=== PATIENT | male | born 1930 | race Caucasian/White ===

== ENCOUNTER → 2016-11-28 | Outpatient (CLI) | payer OTHER, MEDICARE ==
[2016-11-28 09:48] LABS: BLOOD UREA NITROGEN 44 mg/dL (7-22); BUN/CREATININE RATIO 16.29 (6-20); CALCIUM 9.2 mg/dL (8.7-10.7); SERUM ALBUMIN 4.2 g/dL (3.5-4.8)
== END ==
LOC: LAB 08:50
PROVIDERS: ATTEND Internal Medicine
DX: N18.4 Chronic kidney disease, stage 4 (severe) (principal)
CPT/HCPCS: 36415; 80053

== ENCOUNTER → 2016-12-27 | Outpatient (CLI) | payer OTHER, MEDICARE ==
[2016-12-27 11:09] LABS: BLOOD UREA NITROGEN 43 mg/dL (7-22); BUN/CREATININE RATIO 14.33 (6-20); CALCIUM 8.7 mg/dL (8.7-10.7); SERUM ALBUMIN 3.8 g/dL (3.5-4.8)
== END ==
LOC: LAB 10:40
PROVIDERS: ATTEND Internal Medicine
DX: N18.4 Chronic kidney disease, stage 4 (severe) (principal); J44.9 Chronic obstructive pulmonary disease, unspecified; I50.42 Chronic combined systolic (congestive) and diastolic (congestive) heart failure
CPT/HCPCS: 36415; 80053; 99214; G0463

== ENCOUNTER → 2017-01-24 | Outpatient (CLI) | payer OTHER, MEDICARE ==
[2017-01-24 21:47] LABS: BLOOD UREA NITROGEN 35 mg/dL (7-22); CALCIUM 8.3 mg/dL (8.7-10.7)
[2017-01-24 21:48] LABS: SERUM ALBUMIN 3.6 g/dL (3.5-4.8)
== END ==
LOC: LAB 10:34
PROVIDERS: ATTEND Internal Medicine
DX: N18.4 Chronic kidney disease, stage 4 (severe) (principal); I50.42 Chronic combined systolic (congestive) and diastolic (congestive) heart failure
CPT/HCPCS: 36415; 80053; 83880

== ENCOUNTER 2017-02-26 00:13 | Inpatient (IN) | payer OTHER, MEDICARE ==
[2017-02-26] MEDS ORDERED: Sodium Chloride 0.9% 1,000 ML PRIMARY IV ONE (00:49)
[2017-02-26] MEDS ORDERED: NORMAL SALINE 10 ML SYRINGE FLUSH IVP PRN ×3 (00:49→04:29)
[2017-02-26] MEDS ORDERED: IPRATROPIUM/ALBUTEROL SULFATE 3 ML NEB NEB ONE (00:54)
--- NOTE | 2017-02-26 01:03 | EKG ---
[address] [place] [id number] Measurements Intervals [place] Rate: 77 P: 39 CT: 226 QRS: -81 QRSD: 123 T: 111 QT: 411 QTc: 443 Interpretive Statements SINUS RHYTHM WITH FIRST DEGREE AV BLOCK WITH OCCASIONAL SUPRAVENTRICULAR PREMATURE COMPLEXES LEFT ANTERIOR FASCICULAR BLOCK MODERATE T-WAVE ABNORMALITY, CONSIDER ANTEROLATERAL ISCHEMIA MARKED 60 CYCLE INTERFERENCE Compared to ECG 03/04/2015 10:26:25 Left anterior fascicular block now present Sinus bradycardia no longer present T-wave abnormality still present Possible ischemia still present Electronically Signed On 02-26-17 17:50:51 MDT by Mike Wiggins [id number]
[2017-02-26 01:09] LABS: BASOPHILS # (AUTO) 0.06 10*3/UL; BASOPHILS % (AUTO) 0.5 % (0-1); EOSINOPHILS # (AUTO) 0.02 10*3/UL; EOSINOPHILS % (AUTO) 0.2 % (0-8); HEMATOCRIT 50.9 % (42.0-52.0); HEMOGLOBIN 16.8 g/dL (14.0-18.0); LYMPHOCYTES # (AUTO) 1.28 10*3/uL; MEAN CORPUSCULAR VOLUME 84.7 FL (80-90); MEAN PLATELET VOLUME 11.2 FL (7.4-12.2); MONOCYTES # (AUTO) 1.05 10*3/UL (0.3-0.8); MONOCYTES % (AUTO) 9.5 % (5-15); NEUTROPHILS # (AUTO) 8.67 10*3/UL; NEUTROPHILS % (AUTO) 78.1 % (50-80); RED BLOOD COUNT 6.01 10^6/uL (4.70-6.10)
[2017-02-26 01:14] LABS: BLOOD UREA NITROGEN 36 mg/dL (7-22); C-REACTIVE PROTEIN 5.6 mg/dL (0.0-0.9); CALCIUM 9.3 mg/dL (8.7-10.7); MAGNESIUM 2.1 mg/dL (1.6-2.4); SERUM ALBUMIN 4.3 g/dL (3.5-4.8)
[2017-02-26 01:32] LABS: PLATELET MORPHOLOGY COMMENT SEE COMMENTS (NORM); RBC MORPHOLOGY COMMENT NORMAL MORPHOLOGY (NORM); WBC MORPHOLOGY COMMENT NORMAL MORPHOLOGY (NORM)
[2017-02-26 01:54] LABS: ABG PH 7.42 (7.35-7.45); COLLECTION SITE R Radial
[2017-02-26 01:55] LABS: ABG BASE EXCESS -3 MMOL/L (-2-2); ABG OXYGEN SATURATION 93 % (90-100); ABG PCO2 33 MMHG (34-38); ABG PO2 65 MMHG (65-75); ALLEN TEST Yes
--- NOTE | 2017-02-26 01:58 | DI ---
HISTORY: Confusion. TECHNIQUE: Contiguous axial images of the brain were obtained and submitted for interpretation. FINDINGS: There is no acute intracranial hemorrhage. No mass effect or midline shift. Ventricles, sulci, and cisterns are mildly prominent, consistent with age-related atrophy. No evidence of acute infarct. There are periventricular and deep white matter chronic small vessel ischemic changes. Ther e are atheromatous calcifications within the intracranial vasculature. No aggressive osseous lesion or depressed skull fracture. The paranasal sinuses and mastoid air cells are clear. There are postsurgical changes of the bilateral globes. The facial soft tissues are unrem arkable. IMPRESSION: 1. No acute intracranial findings. 2. Age-related senescent changes.
[2017-02-26] MEDS ORDERED: cefTRIAXone Inj 1 GM in Sodium Chloride 0.9% 100 ML IV ONE (03:11)
[2017-02-26 03:17] LABS: BILIRUBIN,URINE MODERATE (NEG); CLARITY,URINE CLEAR (CLEAR); COLOR,URINE YELLOW; GLUCOSE, URINE (UA) NEGATIVE (NEG); NITRATE,URINE NEGATIVE (NEG); OCCULT BLOOD,URINE MODERATE (NEG); PH,URINE 5.5 (5.0-8.5); PROTEIN,URINE 100 mg/dl (NEG)
[2017-02-26] MEDS ORDERED: LIDOCAINE W/ SODIUM BICARB 0.5 ML SYR SUBD PRN ×2 (03:28→04:29)
[2017-02-26 03:32] LABS: URINE SAMPLE TYPE CLEAN CATCH URINE
[2017-02-26 03:33] LABS: BACTERIA,URINE RARE; SQUAMOUS EPITHELIAL CELL,UR RARE
--- NOTE | 2017-02-26 05:54 | PDOC ---
General Adult HPI - General Chief Complaint: Altered Mental Status Stated Complaint: cough, weakness, confusion Date Seen by Provider: 02/26/17 Time Seen by Provider: 00:36 Source: POSITIVE: Patient, Other (Live-in friend) Exam Limitations: POSITIVE: No limitations Nurse's Notes Reviewed & Considered: Yes EMS Report Reviewed & Considered: Verbal - History of Present Illness Initial Comment: The patient is an 86-year-old male who is brought to the emergency room by ambulance. The patient has a female live-in friend, who states that for the past several days the patient has had a cough and has been progressively weak. Patient's friend states that today the patient was sitting on the commode and was unable to stand up for several hours. Patient's friend also states that the patient has been has also been intermittently confused. He states that a few days ago he has been falling. Have you received a tetanus shot in the past 10 years?: No Body Location Affected: REPORTS: Chest (Cough), Other (Weakness and confusion) Timing: REPORTS: Gradual, Getting Worse Duration: >24 hours (For past 3-4 days) Severity: Moderate Quality: REPORTS: Other (No apparent pain) Context: REPORTS: Coughing, Fall Modifying Factors: improves with: Coughing Similar Symptoms Previously: No Recent Care Received: REPORTS: Denies Any Prior Injuries Related to Current Complaint?: No - Patient Home Medications Home Medications: Home Medications Multivitamin [Multivitamins] 1 each PO DAILY 08/01/11 Clopidogrel Bisulfate [Plavix] 1 tab PO DAILY #90 tab 05/03/16 Amlodipine Besylate 1 tab PO QHS #90 tab 11/21/16 Gabapentin 1 cap PO QHS #90 cap 11/21/16 Levothyroxine Sodium 1 tab ORAL QAM #90 tab 11/21/16 Omeprazole 1 cap ORAL BID #180 capsule 11/21/16 Simvastatin 1 tab ORAL QHS #90 tab 11/21/16 Furosemide 1 tab PO DAILY #90 tab 12/27/16 Hydralazine HCl 1 tab PO TID #270 tab 12/27/16 - Patient Allergies Allergies/Adverse Reactions: Allergies Allergy/AdvReac Type Severity Reaction Status Date / Time No Known Drug Allergies Allergy Unknown NOT Verified 02/26/17 00:27 APPLICABLE Past Medical History - heen HEENT History: Cataracts, Dentures/Partials Cardiovascular History: Hypertension, Hyperlipidemia Additional Cardiovasular History: HAS HAD CARIDAC x4 STENTS DUE TO BLOCKAGE/ NEVER HAD LA OR ANGINA Respiratory History: Other (please comment) Additional Respiratory History: QUIT SMOKING 1984, 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 Gastrointestinal History: GERD Genitourinary History: Denies History Endocrine History: Hypothyroidism Musculoskeletal History: Back Pain, Back Injury, Other (please comment) Prosthesis or Implant: Yes (CARDIAC STENTS) Additional Musculoskeletal History: hx foot pain, chronic shoulder pain Neurological History: Denies History Blood Disorders: Denies History Psychiatric History: Denies History History of Sexually Transmitted Diseases: No Cancer History: Skin In Past Year Been Physically Harmed or Verbally Threatened: No History of MDRO: No History of Other Communicable Diseases: No Tobacco Use: Former Smoker Alcohol Use: None Substance Use Type: None Previous Surgical History: Yes Type / Date of Surgery: CARDIAC STENTS X4, CAROTID ENDARTARECTOMY, CHOLECYSTECTOMY, LOW BACK SURGERY, BILAT CATARACT REMOVAL, LEFT CHEEK SURGERY Anesthesia Reactions: No Malignant Hyperthermia: No Significant Family History: No pertinent family hx Past Medical History Reviewed: Reviewed - No Changes ROS - Limitations ROS Limitations: Clinical Condition Constitution: REPORTS: Weakness Cardiovascular: REPORTS: Denies Cardiac Symptoms Respiratory: REPORTS: Cough Productive Neurological: REPORTS: Confusion (Intermittently), Weakness Gastrointestinal: REPORTS: Denies GI Symptoms Endocrine: REPORTS: Denies Symptoms Musculoskeletal: REPORTS: Denies MS Symptoms Genitourinary: REPORTS: Denies Symptoms Eyes: REPORTS: Denies Symptoms ENT: REPORTS: Denies Symptoms Skin: REPORTS: Denies Skin Symptoms Lympathic: REPORTS: Denies Lympathic Symptoms Immunologic: POSITIVE: Denies Symptoms Psychiatric: POSITIVE: Denies Psych Symptoms General Adult Exam - General Appearance General Appearance: POSITIVE: Alert, Cooperative, No Acute Distress, No Evidence of Trauma - HEENT HEENT: POSITIVE: Head Inspection Nml, Eyes Inspection Nml, Ears Inspection Nml, Nose Inspection Nml, Oral/Dental Inspect. Nml, Pharynx Inspect. Nml, PERRL, EOMI - Pupils Pupil Size: 3 mm: Bilateral (PERRLA) - Neck Neck: POSITIVE: Normal Inspection, Thyroid Normal - Respiratory Respiratory: POSITIVE: Rales (Both lung bases), Rhonchi (Both lung bases). NEGATIVE: Breath Sounds Normal - Cardiovascular Cardiovascular: POSITIVE: Regular Rate & Rhythm, No Murmur, No Gallop, PMI Normal Peripheral Pulses: Radial (R): 2+, Radial (L): 2+ - Abdomen Abdomen: Soft: (All Quadrants), Normal Bowel Sounds: (All Quadrants), Denies Tenderness: (All Quadrants), No Splenomegaly: (All Quadrants), No Hepatomegaly: (All Quadrants), No Guarding: (All Quadrants), No Rebound: (All Quadrants), No Palpable Pulse: (All Quadrants), No Palpabale Mass: (All Quadrants), No Distention: (All Quadrants), No Rigidity: (All Quadrants) - Back Back: POSITIVE: Normal Inspection - Skin Skin: POSITIVE: Normal Color, Warm, Dry, No Rash - Extremities Extremity: Non-Tender: (All Extremities), Normal ROM: (All Extremities), Normal Inspection: (All Extremities) - Neurological / Psychological Neurological: 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, 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 As Tested, Motor Normal, Sensation Normal, 5, 6 General Adult Progress - Results Reviewed by me Xrays/CTs/US Reviewed by me: Yes Discussed with Radiologist: No Radiology Findings: Bibasilar infiltrates, right greater than left Lab Results Reviewed: Yes Lab Results:: Laboratory Results 02/26/17 02/26/17 02/26/17 Range/Units 00:49 00:53 01:00 WBC 11.10 H (4.8-10.8) 10^3/uL RBC 6.01 (4.70-6.10) 10^6/uL Hgb 16.8 (14.0-18.0) g/dL Hct 50.9 (42.0-52.0) % MCV 84.7 (80-90) FL MCH 28.0 (27-31) PG MCHC 33.0 (33-37) g/dL RDW Std Deviation 72.8 H (39-50) fL RDW Coeff of Kevin 24.5 H (11.5-14.5) % Plt Count 136 L (140-350) 10*3/uL MPV 11.2 (7.4-12.2) FL Immature Gran % (Auto) 0.2 (0-5) % Neut % (Auto) 78.1 (50-80) % Lymph % (Auto) 11.5 (10-50) % [place] % (Auto) 9.5 (5-15) % Eos % (Auto) 0.2 (0-8) % Baso % (Auto) 0.5 (0-1) % Immature Gran # (Auto) 0.02 10*3/UL Neut # (Auto) 8.67 10*3/UL Lymph # (Auto) 1.28 10*3/uL [place] # (Auto) 1.05 H (0.3-0.8) 10*3/UL Eos # (Auto) 0.02 10*3/UL Baso # (Auto) 0.06 10*3/UL WBC Morphology Comment Normal morphology (NORM) Plt Morphology Comment See comments (NORM) RBC Morph Comment Normal morphology (NORM) PT 13.4 H (9.7-11.4) secs INR 1.29 (0.00-5.90) N/A ABG pH 7.42 (7.35-7.45) ABG pCO2 33 L (34-38) MMHG ABG pO2 65 (65-75) MMHG ABG HCO3 21 L (22-26) ABG Total CO2 22 L (23-27) MMOL/L ABG O2 Saturation 93 (90-100) % ABG Base Excess -3 L (-2-2) MMOL/L Billy Test Yes FiO2 3l Sodium 145 (135-145) meq/L Potassium 4.4 (3.8-5.2) meq/L Chloride 105 (98-112) meq/L Carbon Dioxide 24 (23-33) meq/L Anion Gap 16 (5-20) BUN 36 H (7-22) mg/dL Creatinine 2.0 H (0.70-1.50) mg/dL Estimated GFR Superintendent Logging BUN/Creatinine Ratio 18.00 (6-20) Glucose 122 H (78-110) mg/dL Calculated Osmolality 308.0 H (267-292) mOsm/kg Lactic Acid 2.4 H (0.70-2.10) MMOL/L Calcium 9.3 (8.7-10.7) mg/dL Magnesium 2.1 (1.6-2.4) mg/dL Total Bilirubin 2.6 H (0.3-1.2) mg/dL AST 52 (21-57) IU/L ALT 32 (21-72) IU/L Alkaline Phosphatase 79 (38-126) IU/L C-Reactive Protein 5.6 H (0.0-0.9) mg/dL Total Protein 7.4 (6.1-8.0) g/dL Albumin 4.3 (3.5-4.8) g/dL Globulin 3.1 (2.50-4.10) g/dL Albumin/Globulin Ratio 1.30 (1.3-2.0) mg/g Ur Collection Type Clean catch urine Urine Color Yellow Urine Clarity Clear (CLEAR) Urine pH 5.5 (5.0-8.5) Ur Specific [place] 1.020 (1.005-1.030) Urine Protein 100 (NEG) mg/dl Urine Glucose (UA) Negative (NEG) mg/dL Urine Ketones 15 (NEG) Urine Occult Blood Moderate (NEG) Urine Nitrate Negative (NEG) Urine Bilirubin Moderate (NEG) Urine Urobilinogen 1.0 (0.2) mg/dL Ur Leukocyte Esterase Negative (NEG) Urine RBC 2-4 (NONE) /hpf Urine WBC 1-3 (NONE) Ur Squamous Epith Cells Rare (NONE) Ur Renal Epithelial Cell None (NONE) Urine Crystals None Urine Bacteria Rare (NONE) Urine Casts None Urine Mucus None (NONE) Urine Trichomonas None (NONE) Urine Yeast None (NONE) Serum Alcohol < 10 (0-10) mg/dL EKG Interpreted/Reviewed By Me:: Yes EKG Interpretation:: POSITIVE: Normal Sinus Rhythm, Normal Rate, Normal Intervals, Normal [place], Normal QRS, Normal ST/T - Patient's Progress Pain Medication Addressed: POSITIVE: Not Applicable School/Work Release Addressed: POSITIVE: Not Applicable Re-Examine Time: 03:10 Re-Examine Comment: Blood cultures 2 were obtained and then Rocephin 1 g IV and Zithromax 500 mg IV ordered. Oxygen maintained that 92-95% by nasal cannula. Oxygen saturation on room air on arrival was 70%. Status: POSITIVE: Unchanged, Re-Examined Antibiotics Given: Yes Quality Measure Initiative: CAP: POSITIVE: SaO2, Antibiotic(s), BC, CXR or CT - Consult Consult (If Yes, Name of Consulting MD & Time Called): Yes (Dr. Rucker,[id number], hospitalist) Consulting MD will see pt:: POSITIVE: [facility] Admit Counseled: POSITIVE: Patient, RE: Lab Results, RE: Radiology Results, RE: DX, RE : Need for F/U, Other (Live in friend) Patient Care Time - Estimated PCT Patient Care Time (In Minutes): 60 Vital Signs - Recent Vital Signs Vital Signs: Vital Signs (Last 8 hours) Temp Pulse Resp BP Pulse Ox 02/26/17 03:46 93 02/26/17 00:36 96.6 F L 91 20 124/76 95 - VS Reviewed Vital Signs Reviewed: Yes Discharge Clinical Impression: Pneumonia Condition: Stable Date Decision to Admit to Inpatient: 02/26/17 Time Decision to Admit to Inpatient: 02:50
--- NOTE | 2017-02-26 07:28 | PDOC ---
History and Physical - History of Present Illness Date and Time of Service: 02/26/2017 7:30 AM Chief Complaint: Cough a few days duration History of Present Illness: This is a 86 years old male with medical history significant for history of COPD , chronic renal failure, coronary artery disease with multiple stents in the past, hypertension, GERD, history of peripheral neuropathy, hypercholesteremia who was brought to the hospital by a friend because he been coughing the last few days and he's been been progressively weak. Apparently patient's friend stated to the ER physician that the patient was sitting on the commode and was unable to stand up for several hours. And he's been also falling the last few days. Because of that they brought him to the ER. Evaluation the ER suggested a pneumonia and hence the admission. He was given antibiotic and was admitted. Patient is awake however he doesn't communicate he refuses a to tell me his name he just shakes his head does not seem to know why he is in the hospital, does not know who brought him here, his response all the question is a by shaking his head. He didn't want to tell me his name also. Information was obtained from reviewing the medical notes. Past Medical History Medical History: 1. Coronary artery disease with multiple stents multiple stents. 2. COPD supposed to be on oxygen but I'm unsure whether he is wearing it. 3. Chronic renal failure stage III. 4. Peripheral neuropathy. 5. Hypertension. 6. GERD. 7. Hypercholesteremia. 8. Hypothyroidism. Surgical History: 1. Coronary disease with 4 stents never had an SC. 2. Carotid endarterectomy. 3. Cholecystectomy. 4. Low back surgery. 5. Bilateral cataract removal. 6. Left cheek surgery Pertinent Family History: No premature coronary artery disease or cancers Past Social History: Patient lives with a friend, used to smoke, don't drink. And no drugs. Tobacco Use: Former Smoker Substance Use Type: None Alcohol Use: None Medication / Allergies Home Medications: Home Medications Medication Instructions Recorded Confirmed Type Multivitamin [Multivitamins] 1 each PO DAILY 08/01/11 02/26/17 History Clopidogrel Bisulfate [Plavix] 1 tab PO DAILY #90 tab 05/03/16 02/26/17 Clinic Amlodipine Besylate 1 tab PO QHS #90 tab 11/21/16 02/26/17 Clinic Gabapentin 1 cap PO QHS #90 cap 11/21/16 02/26/17 Clinic Levothyroxine Sodium 1 tab ORAL QAM #90 tab 11/21/16 02/26/17 Clinic Omeprazole 1 cap ORAL BID #180 capsule 11/21/16 02/26/17 Clinic Simvastatin 1 tab ORAL QHS #90 tab 11/21/16 02/26/17 Clinic Furosemide 1 tab PO DAILY #90 tab 12/27/16 02/26/17 [facility] Hydralazine HCl 1 tab PO TID #270 tab 12/27/16 02/26/17 Clinic Allergies/Adverse Reactions: Allergies Allergy/AdvReac Type Severity Reaction Status Date / Time No Known Drug Allergies Allergy Unknown NOT Verified 02/26/17 06:30 APPLICABLE Review of Systems - Review of Systems ROS Unobtainable: Other (Patient refuses to answer questions) Exam - Vitals Vital Signs: Vital Signs Temperature 97.7 F Temperature Source Temporal Artery Scan Pulse Rate [Pulse Oximeter] 94 Respiratory Rate 20 Blood Pressure [Left Arm] 139/71 Pulse Ox 93 Oxygen Flow Rate 6 Oxygen Delivery Method Oxymask Height 5 ft 8 in Weight 172 lb - General General Appearance: POSITIVE: No Acute Distress, Thin - Head Head Exam: POSITIVE: Normal Inspection, Atraumatic - Eye Eye Exam: POSITIVE: Normal Appearance - ENT ENT Exam: POSITIVE: Normal Exam - Neck Neck Exam: POSITIVE: Normal Inspection - Respiratory Additional Respiratory Exam Details: Decreased air entry otherwise clear - Cardiovascular Cardiovascular Exam: POSITIVE: RRR - GI/Abdominal GI/Abdominal Exam: POSITIVE: Normal Bowel Sounds, Non Tender, Non Distended, Soft - Rectal Rectal Exam: POSITIVE: Deferred - External Exam: POSITIVE: Deferred - Extremities Extremities Exam: POSITIVE: Normal Inspection - Back Back Exam: POSITIVE: Normal Inspection - Neurological Neurological Exam: POSITIVE: Alert, No Facial Droop, Moves All Extremities Equally Additional Neurological Exam Details: Patient is awake, he smiles in response to questioning and shake his head but doesn't answer the question verbally. - Integumentary Integumentary Exam: POSITIVE: Normal Color Results - Labs CBC and BMP: 02/26/17 01:00 02/26/17 01:00 - EKG Data -: EKG Interpreted by Me EKG Shows Normal: Sinus Rhythm (Sinus rhythm physically AV block) - EKG Data When Compared to Previous EKG(s) There Are: Other - Imaging Status: Image Pending (Chest x-ray showed infiltrate on the right lower base), Report Reviewed by Me (CT of the head showed no acute intracranial findings, age -related to changes.) Assessment and Plan - Patient Problems (1) Pneumonia Current Visit: Yes Status: Acute Comment: X-ray suggests infiltrates on the right he was given antibiotics will continue with antibiotics. We need to obtain more information from the friend because don't know what his baseline is in terms of his mental status. (2) Hypertension Current Visit: Yes Status: Acute Comment: Continue previous medications (3) COPD (chronic obstructive pulmonary disease) Current Visit: Yes Status: Acute Comment: Continue oxygen, antibiotics. (4) Hypothyroidism Current Visit: Yes Status: Acute Comment: Same med (5) History of coronary artery disease Current Visit: Yes Status: Acute Comment: Continue simvastatin and Plavix
[2017-02-26] MEDS ORDERED: LEVALBUTEROL HCL 0.63 MG/3 ML NEB PRN (08:35)
[2017-02-26] MEDS ORDERED: LEVOTHYROXINE 75 MCG TABLET PO SCH (09:00)
[2017-02-26] MEDS ORDERED: HYDRALAZINE HCL PO SCH (09:00)
[2017-02-26] MEDS ORDERED: OMEPRAZOLE 20 MG CAPSULE PO SCH (09:00)
[2017-02-26] MEDS ORDERED: CLOPIDOGREL 75 MG TABLET PO SCH (09:00)
[2017-02-26] MEDS: LEVOTHYROXINE 75 MCG TABLET PO SCH (09:16)
[2017-02-26] MEDS: Multivitamin Tab 1 TAB PO SCH (10:08)
[2017-02-26] MEDS: FUROSEMIDE 40 MG TABLET PO SCH (10:09)
[2017-02-26] MEDS: CLOPIDOGREL 75 MG TABLET PO SCH (10:09)
[2017-02-26] MEDS: OMEPRAZOLE 20 MG CAPSULE PO SCH ×2 (10:09→20:39)
[2017-02-26] MEDS: AmLODIPine Tab 5 MG TABLET PO SCH (20:40)
[2017-02-26] MEDS: Simvastatin Tab 10 MG TAB PO SCH (20:41)
[2017-02-26] MEDS ORDERED: Simvastatin Tab 10 MG TAB PO SCH (21:00)
[2017-02-26] MEDS ORDERED: AmLODIPine Tab 5 MG TABLET PO SCH (21:00)
[2017-02-27] MEDS ORDERED: cefTRIAXone Inj 1 GM in Sodium Chloride 0.9% 100 ML IV SCH ×2 (03:00→03:30)
[2017-02-27] MEDS: NORMAL SALINE 10 ML SYRINGE FLUSH IVP PRN (03:05)
[2017-02-27] MEDS ORDERED: AZITHROMYCIN 500 MG VIAL IV ONE (03:46)
[2017-02-27] MEDS: LEVOTHYROXINE 75 MCG TABLET PO SCH (04:56)
[2017-02-27 06:05] LABS: BLOOD UREA NITROGEN 33 mg/dL (7-22); BUN/CREATININE RATIO 19.41 (6-20); CALCIUM 8.3 mg/dL (8.7-10.7)
[2017-02-27 06:06] LABS: BASOPHILS # (AUTO) 0.05 10*3/UL; BASOPHILS % (AUTO) 0.6 % (0-1); EOSINOPHILS # (AUTO) 0.16 10*3/UL; EOSINOPHILS % (AUTO) 1.8 % (0-8); HEMATOCRIT 48.1 % (42.0-52.0); HEMOGLOBIN 15.7 g/dL (14.0-18.0); LYMPHOCYTES # (AUTO) 1.33 10*3/uL; MEAN CORPUSCULAR HEMOGLOBIN 28.1 PG (27-31); MEAN CORPUSCULAR HGB CONC 32.6 g/dL (33-37); MEAN PLATELET VOLUME 11.6 FL (7.4-12.2); MONOCYTES # (AUTO) 0.93 10*3/UL (0.3-0.8); MONOCYTES % (AUTO) 10.3 % (5-15); NEUTROPHILS # (AUTO) 6.55 10*3/UL; NEUTROPHILS % (AUTO) 72.5 % (50-80); RED BLOOD COUNT 5.59 10^6/uL (4.70-6.10)
--- NOTE | 2017-02-27 06:50 | EKG ---
[address] [place] [address] Measurements Intervals [place] Rate: 70 P: 126 RI: 244 QRS: 267 QRSD: 124 T: 116 QT: 419 QTc: 439 Interpretive Statements ELECTRONIC ATRIAL PACEMAKER MARKED RIGHT AXIS DEVIATION [QRS AXIS > 100] POSSIBLE RIGHT VENTRICULAR CONDUCTION DELAY [RSR (QR) IN V1/V2] ST DEVIATION AND MODERATE T-WAVE ABNORMALITY, CONSIDER ANTEROLATERAL ISCHEMIA [-0.1+ mV T WAVE IN V3-V6] Compared to ECG 02/26/2017 01:04:15 Right-axis deviation now present Sinus rhythm no longer present First degree AV block no longer present Left anterior fascicular block no longer present T-wave abnormality still present Possible ischemia still present Electronically Signed On 02-27-17 07:54:50 MDT by Emiliano Yoo MD [id number]
[2017-02-27 07:08] LABS: PLATELET MORPHOLOGY COMMENT SEE COMMENTS (NORM); RBC MORPHOLOGY COMMENT SEE COMMENTS (NORM); WBC MORPHOLOGY COMMENT NORMAL MORPHOLOGY (NORM)
[2017-02-27] MEDS: CLOPIDOGREL 75 MG TABLET PO SCH (08:53)
[2017-02-27] MEDS: Multivitamin Tab 1 TAB PO SCH (08:53)
[2017-02-27] MEDS: OMEPRAZOLE 20 MG CAPSULE PO SCH ×2 (08:53→20:42)
[2017-02-27] MEDS: FUROSEMIDE 40 MG TABLET PO SCH (08:53)
--- NOTE | 2017-02-27 09:00 | PT.PROG ---
Progress Note Progress Note: S: Pt. presents to the hospital with weakness. He was brought in by a friend who said he was having difficulty arising from a commode. He states he does not know why he is here and feels like he is doing just fine. He lives in a home with a friend who helps care for him. He states he can ambulate around his house without assistance, but uses a cane outside of his home. He states he has no stairs to go up or down to get into the house or while he is in the house. PMH: CAD w/ multiple stents, COPD and is using O2, Chronic renal failure stage III, peripheral neuropothy, Hypertension, GERD, Hypercholesteremia, hypothyroidism. O: Pt. got a 42 on the ross balance scale putting him at a low risk of falling. A:pt. was able to perform all activities asked of him without assistance. He does not seem like he is fully their cognitively and is slow with instruction and those instructions have to be repeated multiple times. Physically he is weak , but can accomplish what he needs to do. He could benefit from physical therapy , but as long as he has some help at home he should be fine to return there and come to PT as an outpatient/ Problem List: 1. General weakness 2. low fall risk Short term goals 1. walk without assistance for 100ft 2. 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 walk 200ft without assistance 2. perform 10 sit to stands without use of hands Treatment plan: patient will be seen 2x per day and one time per day over the weekend Initial treatment: pt. was put through the ross balance assesment which includes balance activity and sit to stands. pt. also ambulated 20ft w/o assistance. Sundeep Ewing [facility]
--- NOTE | 2017-02-27 10:31 | PDOC(PROG) ---
Interval History: Patient has no complaints no chest pain no nausea no vomiting physical therapy is evaluating him Objective : Data - Labs CBC and BMP: 02/27/17 05:37 02/27/17 05:37 Labs - Last 24 Hours: Laboratory Results 02/27/17 Range/Units 05:37 WBC 9.03 (4.8-10.8) 10^3/uL RBC 5.59 (4.70-6.10) 10^6/uL Hgb 15.7 (14.0-18.0) g/dL Hct 48.1 (42.0-52.0) % MCV 86.0 (80-90) FL MCH 28.1 (27-31) PG MCHC 32.6 L (33-37) g/dL RDW Std Deviation 73.5 H (39-50) fL RDW Coeff of Kevin 24.5 H (11.5-14.5) % Plt Count 127 L (140-350) 10*3/uL MPV 11.6 (7.4-12.2) FL Immature Gran % (Auto) 0.1 (0-5) % Neut % (Auto) 72.5 (50-80) % Lymph % (Auto) 14.7 (10-50) % [place] % (Auto) 10.3 (5-15) % Eos % (Auto) 1.8 (0-8) % Baso % (Auto) 0.6 (0-1) % Immature Gran # (Auto) 0.01 10*3/UL Neut # (Auto) 6.55 10*3/UL Lymph # (Auto) 1.33 10*3/uL [place] # (Auto) 0.93 H (0.3-0.8) 10*3/UL Eos # (Auto) 0.16 10*3/UL Baso # (Auto) 0.05 10*3/UL WBC Morphology Comment Normal morphology (NORM) Plt Morphology Comment See comments (NORM) RBC Morph Comment See comments (NORM) Sodium 143 (135-145) meq/L Potassium 3.7 L (3.8-5.2) meq/L Chloride 106 (98-112) meq/L Carbon Dioxide 24 (23-33) meq/L Anion Gap 13 (5-20) BUN 33 H (7-22) mg/dL Creatinine 1.7 H (0.70-1.50) mg/dL Estimated GFR Workers Compensation Claims Adjuster BUN/Creatinine Ratio 19.41 (6-20) Glucose 87 (78-110) mg/dL Calculated Osmolality 301.0 H (267-292) mOsm/kg Calcium 8.3 L (8.7-10.7) mg/dL Objective : Exam - General General Appearance: Cooperative - Respiratory Respiratory Exam: Decreased Breath Sounds - Cardiovascular Cardiovascular Exam: RRR, No Murmur, No Clicks - GI/Abdominal GI/Abdominal Exam: Normal Bowel Sounds, Non Tender, Non Distended, Soft - Extremities Extremities Exam: No Clubbing Present, No Edema Present, No Cyanosis Present Assessment and Plan - Patient Problems (1) Pneumonia Current Visit: Yes Status: Acute Comment: Increase ceftriaxone to 2 g daily plus Zithromax white count is improving patient is on 4 L at home baseline not sure if he uses it (2) COPD (chronic obstructive pulmonary disease) Current Visit: Yes Status: Acute (3) Hypertension Current Visit: Yes Status: Acute (4) Coronary disease Current Visit: No Status: Chronic (5) History of coronary artery disease Current Visit: Yes Status: Chronic
--- NOTE | 2017-02-27 10:54 | DI ---
XR CXR 2VW PA/LAT,02/26/2017 2:29 AM: Clinical History: Hypoxia Previous Exam: January 04, 2015 Findings: PA and lateral views of the chest are obtained, and demonstrate some increased interstitial markings and cardiomegaly. The cardiomegaly has increased in size since the prior exam. There is a new pacemak er noted. There is airspace disease within the right lung base and some silhouetting of both hemidiap hragms which was seen on the prior exam, but has worsened on today's exam. There are extensive degenerative changes of the acromioclavicular joints. Impression: Increasing airspace disease within the lung bases. Increased interstitial markings and cardiomegaly which has also worsened since the prior exam.
[2017-02-27] MEDS ORDERED: cefTRIAXone Inj 2 GM in Sodium Chloride 0.9% 100 ML IV SCH (13:00)
--- NOTE | 2017-02-27 15:30 | OT.PROG ---
Progress Note Progress Note: S: Pt reports he is feeling "pretty good". Pt reports slight pain in R shoulder during UE therapeutic exercise. No other complaints. O: Pt was seen from 14:15 to 14:50 for skilled OT. Pt participated in cognitive screening using the [place]a Cognitive Assessment (MOCA). Pt scored a 11/30 indicating a moderate cognitive impairment. During screening, pt demonstrated difficulty with word find, simple math calculations, memory tasks, and generalized orientation. Pt completed UE strengthening with yellow T.B. for biceps, horizontal abduction, and triceps X 20 each. A: Pt requires more than one cue throughout task for attention to task, however has difficulty following more than 2-step directions during cognitive screening. Pt would benefit from continued cognitive testing to determine functional abilities as well as continued UE strengthening in order to enhance ADL participation. P: Continue POC. Recommended further functional cognitive testing. ALPA Higuera/TIMOTHY
--- NOTE | 2017-02-27 16:29 | PT.PROG ---
Progress Note Progress Note: 05/30/2017 3:00-3:30 S: pt. states that he is tired. He also states he feels he exercises enough at home. O: pt. performed LAQ, marches, Clams, ball squeezes, and sit to stands all x10. he then performed a small obstacle course x5. pt. then finished w/ 5 min on the nustep and walked back to his room. A: pt. was able to perform all exercise asked of him. He moves well and can maneuver through obstacles. P: progress his functional activity by eliminating hands from his sit to stands and adding more difficulty to his obstacle course
[2017-02-27] MEDS: Simvastatin Tab 10 MG TAB PO SCH (20:42)
[2017-02-27] MEDS: AmLODIPine Tab 5 MG TABLET PO SCH (20:42)
[2017-02-28] MEDS: NORMAL SALINE 10 ML SYRINGE FLUSH IVP PRN (03:07)
[2017-02-28] MEDS: LEVOTHYROXINE 75 MCG TABLET PO SCH (04:46)
[2017-02-28 05:28] LABS: HEMATOCRIT 45.3 % (42.0-52.0); LYMPHOCYTES # (AUTO) 1.28 10*3/uL
[2017-02-28 05:30] LABS: BLOOD UREA NITROGEN 30 mg/dL (7-22); BUN/CREATININE RATIO 17.64 (6-20); CALCIUM 7.9 mg/dL (8.7-10.7)
[2017-02-28 05:33] LABS: BASOPHILS # (AUTO) 0.03 10*3/UL; BASOPHILS % (AUTO) 0.4 % (0-1); EOSINOPHILS # (AUTO) 0.28 10*3/UL; EOSINOPHILS % (AUTO) 4.2 % (0-8); HEMOGLOBIN 14.7 g/dL (14.0-18.0); MEAN CORPUSCULAR HEMOGLOBIN 27.9 PG (27-31); MEAN CORPUSCULAR HGB CONC 32.5 g/dL (33-37); MEAN CORPUSCULAR VOLUME 86.1 FL (80-90); MONOCYTES # (AUTO) 0.74 10*3/UL (0.3-0.8); NEUTROPHILS # (AUTO) 4.38 10*3/UL; NEUTROPHILS % (AUTO) 65.1 % (50-80); RED BLOOD COUNT 5.26 10^6/uL (4.70-6.10)
[2017-02-28 05:54] LABS: PLATELET MORPHOLOGY COMMENT NORMAL MORPHOLOGY (NORM); RBC MORPHOLOGY COMMENT SEE COMMENTS (NORM); WBC MORPHOLOGY COMMENT NORMAL MORPHOLOGY (NORM)
[2017-02-28] MEDS: OMEPRAZOLE 20 MG CAPSULE PO SCH ×2 (08:15→20:25)
[2017-02-28] MEDS: FUROSEMIDE 40 MG TABLET PO SCH (08:16)
[2017-02-28] MEDS: Multivitamin Tab 1 TAB PO SCH (08:16)
[2017-02-28] MEDS: CLOPIDOGREL 75 MG TABLET PO SCH (08:16)
[2017-02-28] MEDS: POTASSIUM CHLORIDE 20 MEQ TAB PO SCH ×2 (09:35→20:26)
--- NOTE | 2017-02-28 11:00 | PT.PROG ---
Progress Note Progress Note: 02/28/2017 10:00-10:30 S: pt. reports he is excited for PT and enjoyed the exercise he got last time. He states that he enjoys being out of his room and in the gym. O: pt. performed 10 min on the nustep, marches and LAQ x10 3#, pt. performed seated clam hold and adductor hold for 1 min each. he then performed 10 sit to stands on an elevated mat while holding a ball, and finished with an obstacle course which included a 3" step 3x. A: pt. tolerated all exercise well, displayed good strength, and the ability to safely maneuver through obstacles. P: continue to improve functional activity by decreasing the height of the table for sit to stands and increasing the difficulty of the obstacle course
--- NOTE | 2017-02-28 11:10 | OTI REPORT ---
Thank you for the referral of Yo Levy. He was seen on 02/27/17 for an occupational therapy inpatient evaluation secondary to weakness. SUBJECTIVE: The patient is an 86-year-old male. The patient does report that he had a fall a couple of months ago when he was attempting to get dressed prior to bedtime. He became confused, fell, and broke his nose when he fell to the floor. The patient does report that he is feeling okay and he was unable to describe the reason for hospitalization. The patient resides in [place]. He was not driving prior to hospitalization. The patient reports living with his significant other. The patient reports living in a single story home with one step to the entrance with no hand rails where he enters through the back door. The patient reports carpeted floors. Bathroom set up includes a tub/shower combo with no shower chair available at home. The patient reports that he showers standing with no assistance. The patient utilizes a standard toilet at home with no grab bars and he sleeps in a standard bed. The patient does not report using any assistive devices to ambulate at home or in the community. The patient did not use any assistive devices at the time of the evaluation. Prior to admission the patient reports being able to complete all ADLs independently with some assistance from his significant other for iADLs including laundry, cooking, cleaning, groceries, and driving. The patient's goal is to return home to live with prior level of functioning. PAST MEDICAL HISTORY: Past medical history can be found in the patient's medical record. OBJECTIVE FINDINGS: General observations: The patient was oriented to person and placed; however, he was unable to recall the date including the month, day of the week, the year , or the date. He was also unable to recall reason for hospitalization. The patient wears glasses. Pain: The patient reports no pain at the time of the evaluation. Oxygen: The patient reports using oxygen at home with 5 liters. Currently the patient is on 5.5 liters. Range of motion: The patient's left upper extremity demonstrates shoulder range of motion that is within functional limits. The patient's right upper extremity demonstrates shoulder motion that is 75% of normal. Strength: Strength in the left upper extremity including shoulder, elbow, wrist , and hand demonstrates 3/5 manual muscle grade. Strength in the right upper extremity is 2+ to 3/5 for shoulder, elbow, wrist, and hand. Activities of daily living: The patient performed lower extremity dressing to include threading sweatpants as well as pulling up with set up assistance. The patient performed donning and doffing socks independently with a leg crossing technique while sitting edge of bed. The patient performed upper extremity dressing with set up assistance. Bed mobility: The patient was able to come from supine to sitting edge of bed independently. ASSESSMENT: The patient is a poor historian and demonstrates cognitive deficits. The patient also has impaired upper extremity strength. Problem List: Decreased cognitive functioning including decision making and executive functioning Decreased upper extremity strength related to activities of daily living Patient has a prior fall history Short-Term Goals: To be met by discharge from inpatient: Patient will increase upper extremity strength bilaterally to 4/5. Patient will be able to perform all grooming tasks while standing at sink without loss of balance. Patient will be able to perform all showering tasks safely without losing balance with adaptive equipment as needed. Patient will demonstrate safety awareness during all ADLs with use of adaptive equipment as needed to prevent falls. Long-Term Goals: To be met following discharge from inpatient: Patient will return home to prior level of functioning with assistance from his significant other as needed or additional assistance. TREATMENT PLAN: Patient will be seen B.I.D during the week and one time per day over the weekend as an inpatient to address the above goals and objectives. The patient may also benefit from a cognitive evaluation. INITIAL TREATMENT: Treatment today consisted of the initial evaluation followed by upper and lower extremity dressing, functional mobility including sit to stand transfers, and bed mobility tasks. Dictated by: ALAP Higuera/TIMOTHY Supervised by: LUZ Hathaway/Aleksander XIE
--- NOTE | 2017-02-28 11:37 | PDOC(PROG) ---
Interval History: Patient has no complaints participating in PT getting a little stronger dementia is also better today Objective : Data - Labs CBC and BMP: 02/28/17 04:48 02/28/17 04:48 Labs - Last 24 Hours: Laboratory Results 02/28/17 Range/Units 04:48 WBC 6.73 (4.8-10.8) 10^3/uL RBC 5.26 (4.70-6.10) 10^6/uL Hgb 14.7 (14.0-18.0) g/dL Hct 45.3 (42.0-52.0) % MCV 86.1 (80-90) FL MCH 27.9 (27-31) PG MCHC 32.5 L (33-37) g/dL RDW Std Deviation 71.7 H (39-50) fL RDW Coeff of Kevin 23.7 H (11.5-14.5) % Plt Count 129 L (140-350) 10*3/uL Immature Gran % (Auto) 0.3 (0-5) % Neut % (Auto) 65.1 (50-80) % Lymph % (Auto) 19.0 (10-50) % [place] % (Auto) 11.0 (5-15) % Eos % (Auto) 4.2 (0-8) % Baso % (Auto) 0.4 (0-1) % Immature Gran # (Auto) 0.02 10*3/UL Neut # (Auto) 4.38 10*3/UL Lymph # (Auto) 1.28 10*3/uL [place] # (Auto) 0.74 (0.3-0.8) 10*3/UL Eos # (Auto) 0.28 10*3/UL Baso # (Auto) 0.03 10*3/UL WBC Morphology Comment Normal morphology (NORM) Plt Morphology Comment Normal morphology (NORM) RBC Morph Comment See comments (NORM) Sodium 139 (135-145) meq/L Potassium 3.5 L (3.8-5.2) meq/L Chloride 104 (98-112) meq/L Carbon Dioxide 25 (23-33) meq/L Anion Gap 10 (5-20) BUN 30 H (7-22) mg/dL Creatinine 1.7 H (0.70-1.50) mg/dL Estimated GFR Social Contact Worker BUN/Creatinine Ratio 17.64 (6-20) Glucose 82 (78-110) mg/dL Calculated Osmolality 292.0 (267-292) mOsm/kg Calcium 7.9 L (8.7-10.7) mg/dL Total Bilirubin 0.8 (0.3-1.2) mg/dL AST 33 (21-57) IU/L ALT 37 (21-72) IU/L Alkaline Phosphatase 54 (38-126) IU/L Total Protein 5.5 L (6.1-8.0) g/dL Albumin 3.0 L (3.5-4.8) g/dL Globulin 2.5 (2.50-4.10) g/dL Albumin/Globulin Ratio 1.20 L (1.3-2.0) mg/g Objective : Exam - General General Appearance: Cooperative - Head Head Exam: Normal Inspection, Normocephalic, Atraumatic - Respiratory Respiratory Exam: Clear to Auscultation - Bilaterally, Breathing Non Labored - Cardiovascular Cardiovascular Exam: No Murmur, No Clicks - GI/Abdominal GI/Abdominal Exam: Non Tender, Non Distended, Soft - Extremities Extremities Exam: No Clubbing Present, No Edema Present, No Cyanosis Present - Neurological Neurological Exam: Alert, Oriented x 3, CN II-XII Intact Assessment and Plan - Patient Problems (1) Pneumonia Current Visit: Yes Status: Acute Comment: Continue antibiotics check CT scan no contrast (2) COPD (chronic obstructive pulmonary disease) Current Visit: Yes Status: Acute Comment: Patient is on chronic oxygen at home unsure if he wears it discussed with the occupational therapy he needs work with his cognitive sphere and also the occupational therapist would like to meet the significant other which lives with them recommended swing bed (3) Hypertension Current Visit: Yes Status: Acute Comment: Stable (4) Coronary disease Current Visit: No Status: Chronic Comment: Stable (5) History of coronary artery disease Current Visit: Yes Status: Chronic Comment: Stable
--- NOTE | 2017-02-28 14:53 | DI ---
CT CHEST W/O CONTRAST,02/28/2017 8:38 AM: Clinical History: Hypoxia Previous Exam: December 31, 2014 Findings: Multiple helically acquired CT images are obtained through the chest without contrast, and demonstrat e peripheral vascular calcifications. There is a pacemaker noted with leads in good position. There is some thickening of the interstitium throughout and some peripheral fibrosis. There are calcified granulomas in the liver and the spleen. The adrenals and kidneys are unremarkable . The pancreas is not well evaluated. Diffuse degenerative changes of the spine are noted. There is mild cardiomegaly. Impression: 1. Diffuse COPD with interstitial thickening most consistent with advanced COPD with secondary inters titial changes. Correlate clinically. 2. There is airspace disease, but this is mostly due to cicatricial atelectasis.
--- NOTE | 2017-02-28 16:13 | PT.PROG ---
Progress Note Progress Note: S. Patient states that he is feeling good this afternoon. O. Patient ambulated 175 feet to the therapy gym where he performed exercises in the form of; standing marches, sit to stands (2#)x 10, standing balance x 3 minutes Patient was left with OT for further therapy. A. Patient struggled with balance exercises however tolerates ambulation and strength exercises well. He requires frequent verbal cues to stay on task. He would continue to benefit from skilled therapy at this time. P. Continue POC.
[2017-02-28] MEDS: predniSONE Tab 20 MG TAB PO SCH (18:41)
[2017-02-28] MEDS: AmLODIPine Tab 5 MG TABLET PO SCH (20:25)
[2017-02-28] MEDS: DOXYCYCLINE HYCLATE 100 MG CAPSULE PO SCH (20:25)
[2017-02-28] MEDS: Simvastatin Tab 10 MG TAB PO SCH (20:25)
[2017-03-01] MEDS: LEVOTHYROXINE 75 MCG TABLET PO SCH (04:32)
[2017-03-01 05:43] LABS: BASOPHILS # (AUTO) 0.01 10*3/UL; BASOPHILS % (AUTO) 0.2 % (0-1); EOSINOPHILS # (AUTO) 0.01 10*3/UL; EOSINOPHILS % (AUTO) 0.2 % (0-8); HEMOGLOBIN 15.2 g/dL (14.0-18.0); LYMPHOCYTES # (AUTO) 0.73 10*3/uL; MEAN CORPUSCULAR HEMOGLOBIN 28.3 PG (27-31); MEAN CORPUSCULAR VOLUME 85.5 FL (80-90); MEAN PLATELET VOLUME 10.8 FL (7.4-12.2); MONOCYTES # (AUTO) 0.16 10*3/UL (0.3-0.8); MONOCYTES % (AUTO) 3.3 % (5-15); NEUTROPHILS # (AUTO) 3.94 10*3/UL; NEUTROPHILS % (AUTO) 81.1 % (50-80); RED BLOOD COUNT 5.38 10^6/uL (4.70-6.10)
[2017-03-01 05:47] LABS: PLATELET MORPHOLOGY COMMENT NORMAL MORPHOLOGY (NORM); WBC MORPHOLOGY COMMENT NORMAL MORPHOLOGY (NORM)
[2017-03-01 05:48] LABS: RBC MORPHOLOGY COMMENT SEE COMMENTS (NORM)
[2017-03-01 05:55] LABS: BLOOD UREA NITROGEN 32 mg/dL (7-22); BUN/CREATININE RATIO 17.77 (6-20); CALCIUM 8.3 mg/dL (8.7-10.7); SERUM ALBUMIN 3.5 g/dL (3.5-4.8)
[2017-03-01] MEDS: OMEPRAZOLE 20 MG CAPSULE PO SCH ×2 (09:10→20:34)
[2017-03-01] MEDS: DOXYCYCLINE HYCLATE 100 MG CAPSULE PO SCH ×2 (09:10→20:34)
[2017-03-01] MEDS: Multivitamin Tab 1 TAB PO SCH (09:10)
[2017-03-01] MEDS: predniSONE Tab 20 MG TAB PO SCH (09:10)
[2017-03-01] MEDS: POTASSIUM CHLORIDE 20 MEQ TAB PO SCH (09:10)
[2017-03-01] MEDS: CLOPIDOGREL 75 MG TABLET PO SCH (09:10)
[2017-03-01] MEDS: FUROSEMIDE 40 MG TABLET PO SCH (09:15)
--- NOTE | 2017-03-01 09:34 | PDOC(PROG) ---
Interval History: Patient is doing well now is red and his oxygen. There is some concern from occupational therapy about his memory he appears to have dementia. Also they recommended 24-hour care Objective : Data - Labs CBC and BMP: 03/01/17 04:36 03/01/17 04:36 Labs - Last 24 Hours: Laboratory Results 02/28/17 03/01/17 Range/Units 04:48 04:36 WBC 4.86 (4.8-10.8) 10^3/uL RBC 5.38 (4.70-6.10) 10^6/uL Hgb 15.2 (14.0-18.0) g/dL Hct 46.0 (42.0-52.0) % MCV 85.5 (80-90) FL MCH 28.3 (27-31) PG MCHC 33.0 (33-37) g/dL RDW Std Deviation 71.2 H (39-50) fL RDW Coeff of Kevin 23.4 H (11.5-14.5) % Plt Count 121 L (140-350) 10*3/uL MPV 10.8 (7.4-12.2) FL Immature Gran % (Auto) 0.2 (0-5) % Neut % (Auto) 81.1 H (50-80) % Lymph % (Auto) 15.0 (10-50) % [place] % (Auto) 3.3 L (5-15) % Eos % (Auto) 0.2 (0-8) % Baso % (Auto) 0.2 (0-1) % Immature Gran # (Auto) 0.01 10*3/UL Neut # (Auto) 3.94 10*3/UL Lymph # (Auto) 0.73 10*3/uL [place] # (Auto) 0.16 L (0.3-0.8) 10*3/UL Eos # (Auto) 0.01 10*3/UL Baso # (Auto) 0.01 10*3/UL WBC Morphology Comment Normal morphology (NORM) Plt Morphology Comment Normal morphology (NORM) RBC Morph Comment See comments (NORM) Sodium 137 (135-145) meq/L Potassium 5.0 D (3.8-5.2) meq/L Chloride 102 (98-112) meq/L Carbon Dioxide 24 (23-33) meq/L Anion Gap 11 (5-20) BUN 32 H (7-22) mg/dL Creatinine 1.8 H (0.70-1.50) mg/dL Estimated GFR Tire Service Technician BUN/Creatinine Ratio 17.77 (6-20) Glucose 136 H (78-110) mg/dL Calculated Osmolality 292.0 (267-292) mOsm/kg Calcium 8.3 L (8.7-10.7) mg/dL Magnesium 1.9 (1.6-2.4) mg/dL Total Bilirubin 0.9 (0.3-1.2) mg/dL AST 34 (21-57) IU/L ALT 39 (21-72) IU/L Alkaline Phosphatase 60 (38-126) IU/L Total Protein 6.1 (6.1-8.0) g/dL Albumin 3.5 (3.5-4.8) g/dL Globulin 2.7 (2.50-4.10) g/dL Albumin/Globulin Ratio 1.20 L (1.3-2.0) mg/g Objective : Exam - General General Appearance: Cooperative - Respiratory Respiratory Exam: Decreased Breath Sounds - Cardiovascular Cardiovascular Exam: RRR, No Murmur, No Clicks, No Gallops - Extremities Extremities Exam: No Clubbing Present, No Edema Present, No Cyanosis Present Assessment and Plan - Patient Problems (1) Pneumonia Current Visit: Yes Status: Acute Comment: CT scan of his chest revealed no pneumonia 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 steroids were started 40 mg for 5 days patient is doing much better from respiratory standpoint he will do one more day of Doxy (2) COPD (chronic obstructive pulmonary disease) Current Visit: Yes Status: Acute Comment: Continue inhalers will probably need the Advair and Spiriva (3) Hypertension Current Visit: Yes Status: Acute Comment: Controlled (4) Coronary disease Current Visit: No Status: Chronic Comment: Stable (5) History of coronary artery disease Current Visit: Yes Status: Chronic Comment: Stable (6) Renal impairment Current Visit: No Status: Acute Comment: Chronic creatinine of 1.8 - Assessment / Plan Additional Assessment/Plan Details: I had a long discussion with occupational therapy physical therapy social service and they think patient is not the safe to go home and unable to take care of self occupational therapy is concerned about his driving. We are going to have a meeting with his significant other believe girlfriends and the see if she is willing to take care of him otherwise other arrangements can be pursued as per social media senior associate
--- NOTE | 2017-03-01 11:39 | OT.PROG ---
Progress Note Progress Note: S: Pt has no reports of pain or complaints. Pt does report wanting to return home. O: Pt seen from 9:20 to 10:00 with for occupational therapy with a focus on cognition. Pt continued with cognitive testing with the Cognitive Performance Test (CPT), a standardized test, in order to assess pt's ability to complete functional tasks. Pt scored a 4.0 for [employer] subtask and 4.0 for [place] subtask. Pt scored a 4.5 for Wash subtask and required a verbal cue to locate the sink within the room following initial directions. Pt scored a 3.5 for the Shop subtask, which includes selecting a correct size of gloves and counting accurate change. Pt required verbal cues to locate a pair of gloves that could be bought with the money given and was unable to count correct change independently. For the Phone subtask, pt scored a 4.0 and required several verbal cues to try to locate a number within the phone book and was unable to locate a number. Once given the correct number, pt was able to make a phone call and determine the cost of 1 gallon of paint. The final score for the CPT was 20/28, indicating a 4.0 level. According to Billy's Cognitive Levels a score of 4.0 indicates pt may require 24 hour care with supervision to max assistance depending on the novelty of situation. A: Pt has made improvements in activity tolerance and completing functional tasks. Pt's has ability to perform functional tasks including ADL performance with safety, however cognition impacts pts ability to complete higher level functional tasks safely including medication management, finances, and utilizing a phone. P: Recommended 24 hour supervision/assistance upon discharge from hospital setting for safety. ALPA Higuera/TIMOTHY
--- NOTE | 2017-03-01 15:32 | OT AM DAY ---
Diagnosis : Weakness AM - Occupational Therapy S: The patient reports that he lives with his significant other. He states he is in charge of his medicine and he drives. However, later in the day OT was able to talk to his significant other and she states that she drove with him a couple of weeks ago and he probably should not be driving anymore. Also, she states he is in charge of his medicines but she is wondering if he should have a little more supervision with this. He did get stuck on the toilet at home and had difficulty getting up from the toilet. She is noticing that it is taking him longer to complete tasks at home. O: The therapist spent 90 minutes with the patient on showering, dressing, and shaving activities. Today we had the patient go from his room to the shower. The patient took approximately 45 minutes in the shower to wash his head, chest, back, and leg area, all with stand by assist. He did however need assistance with his back. The patient was able to stand during this entire time. When getting dressed he sat on the chair and needed min assist with his socks but was able to don his Depends, shorts, and t-shirt independently. He then walked to his room and stood at the sink x12 minutes in order to shave. A: The patient does require increased time and cues for processing abilities. P: Continue seeing patient BID during the week and one time per day over the weekend for upper extremity strengthening, ADLs, and overall functional mobility. ISAACD
--- NOTE | 2017-03-01 16:08 | PT.PROG ---
Progress Note Progress Note: S: pt reports he is ready for his discharge papers. pt reports he wants to go home to take care of some things. O: nsg okay'd prior to PT. pt instructed to perform BLE strengthening, sit to stands, balance activities in standing with CGA to min assist x 1 with balloon taps and ball kicks, ball bounces. pt instructed to ambulate back to room from therapy gym approx 150 feet with CGA x 1 and on 6 LO2. pt returned to chair in room with 6 LO2 and call light within reach and chair alarm activated. A: pt tolerated therapy well. fatigues with higher level balance activities. pt demo difficulty with R shoulder elevation. pt continues to benefit from skilled therapy. P: cont per POC.
--- NOTE | 2017-03-01 16:25 | OT PM DAY ---
Diagnosis : Weakness PM - Occupational Therapy S: The patient reports he is doing well today. He has no complaints of pain. O: The patient participated in cognitive testing today including the Cognitive Performance Test (CPT) which is a standardized assessment. The patient performed two subtasks of this test. Prior to testing the patient reported that he does manage his own medications; however, the pharmacy baker the morning and night pills. The patient also reports he does not use a med box during medication management. Med box: The patient scored 4.0. The patient required verbal cues to correct days of the week while reading the pill box labels. The patient did use a technique to turn over the pill boxes once they were done; however, the patient made errors with all four of the bottles and was unable to correct with verbal cues. [place]: The patient scored 4.0. After instructions were given the patient initially started to butter the bread prior to toasting the bread as instructed. Once cued, the patient was able to plug in the toaster, put the bread in the toaster, push the toaster lever down, waist for the toast to pop up , and then put butter on the toast. A: We will continue with cognitive performance testing tomorrow. The patient has made improvements with cognitive performance as demonstrated by recalling simple facts and verbalizing daily routine tasks. P: Continue seeing patient BID during the week and one time per day over the weekend for upper extremity strengthening, ADLs, and overall functional mobility. ROJAS
--- NOTE | 2017-03-01 16:47 | OT.PROG ---
Progress Note Progress Note: S: Pt reports " he is not doing great this afternoon" and reports wanting to go home. O: Pt seen from 14:30 to 15:00 for occupational therapy with a focus on therapeutic exercise. Pt completed BUE strengthening and ROM to include biceps 3 # 2 X 20, shoulder flexion 1# 2 X 20, and functional reaching patterns. Dynamic sitting balance with BUE movement was addressed with balloon tapping activity X 10 min. A: Pt is able to flex RUE to 100 degrees of shoulder flexion for functional activity before having pain. No concerns with dynamic sitting balance. Pt does become fatigued with continuous UE movement and reports "being tired" following therapy session. P: Continue POC. ALPA Higuera/TIMOTHY
--- NOTE | 2017-03-01 16:54 | PT.PROG ---
Progress Note Progress Note: S. Patient stated that he is feeling good this afternoon he would like to go home soon. O. Patient ambulated 175 feet to the therapy gym where performed exercises in the form of; heel toe raises, marches, long arc quads, sit to stands, ball squeezes all x 10 bilaterally, Patient performed standing balance x 3 minutes. Patient was left with OT for further therapy. A. Patient tolerates exercises well, however continues to struggle with cognition, he requires verbal cues to stay on task. Patient would continue to benefit from skilled therapy at this time. P. Continue POC.
[2017-03-01] MEDS: FLUTICASONE/SALMETEROL 250/50 UD INHALER INH SCH (19:22)
[2017-03-01] MEDS: Simvastatin Tab 10 MG TAB PO SCH (20:34)
[2017-03-01] MEDS: AmLODIPine Tab 5 MG TABLET PO SCH (20:34)
[2017-03-02] MEDS: LEVOTHYROXINE 75 MCG TABLET PO SCH (04:56)
[2017-03-02] MEDS: FLUTICASONE/SALMETEROL 250/50 UD INHALER INH SCH (06:55)
[2017-03-02] MEDS ORDERED: TIOTROPIUM BROMIDE 18 MCG CAPSULE INH SCH (07:00)
--- NOTE | 2017-03-02 08:52 | PDOC(PROG) ---
Interval History: Doing well no complaints. No chest pain no nausea no vomiting Objective : Data - Labs CBC and BMP: 03/01/17 04:36 03/01/17 04:36 Objective : Exam - Respiratory Respiratory Exam: Clear to Auscultation - Bilaterally, Decreased Breath Sounds - Cardiovascular Cardiovascular Exam: RRR, No Murmur, No Clicks, No Gallops Assessment and Plan - Patient Problems (1) Pneumonia Current Visit: Yes Status: Acute Comment: This is resolved on CT scan its O interstitial fibrosis (2) COPD (chronic obstructive pulmonary disease) Current Visit: Yes Status: Acute Comment: Patient is now on steroids Advair as per rebound doing very well. Patient has been using is on oxygen but according to his girlfriend he has passed out several times at home because she thinks there is no oxygen occupational therapy will be doing a home eval tomorrow to check into this also to see how safe it is for him to be going home (3) Hypertension Current Visit: Yes Status: Acute Comment: Controlled (4) Coronary disease Current Visit: No Status: Chronic Comment: Stable (5) History of coronary artery disease Current Visit: Yes Status: Chronic Comment: Stable (6) Renal impairment Current Visit: No Status: Acute Comment: Stable check CMP
[2017-03-02] MEDS: DOXYCYCLINE HYCLATE 100 MG CAPSULE PO SCH (08:54)
[2017-03-02] MEDS: CLOPIDOGREL 75 MG TABLET PO SCH (08:54)
[2017-03-02] MEDS: predniSONE Tab 20 MG TAB PO SCH (08:54)
[2017-03-02] MEDS: Multivitamin Tab 1 TAB PO SCH (08:54)
[2017-03-02] MEDS: OMEPRAZOLE 20 MG CAPSULE PO SCH (08:55)
[2017-03-02 09:52] LABS: BLOOD UREA NITROGEN 40 mg/dL (7-22); BUN/CREATININE RATIO 23.52 (6-20); CALCIUM 8.6 mg/dL (8.7-10.7); SERUM ALBUMIN 3.7 g/dL (3.5-4.8)
[2017-03-02 11:22] VITALS: RESP 18; TEMP 97.3
--- NOTE | 2017-03-02 11:40 | PT.PROG ---
Progress Note Progress Note: Patient refused physical therapy this morning. He reports that he just wants to go home he doesn't want to do anything else.
--- NOTE | 2017-03-02 15:14 | OT.PROG ---
Progress Note Progress Note: S: pt states he is going home if he has to crawl out of here. He reports wanting a shower today. O: pt was seen today in his room after completing toilet transfer. He sat in his chair and completed mini mental exam. He scored a 19/30 overall. Degree of impairment puts him in the moderate category with a clear impairment and may require 24 hr supervision. After completing exam he transferred to sink and completed shaving. He completed activity Ind but he shaved his face x3. He cleaned up sink and himself Ind and returned to chair. he was left with call light within reach and chair alarm on. A: pt took a long time to complete ADL shaving, but may be the routine that he does. He may require 24 hr care. monitor o2 P: continue to progress per POC.
--- NOTE | 2017-03-02 15:18 | DCSUMMARY ---
Hospitalization Summary Hospital Course: Final Discharge Diagnosis: Current Visit Problems Problem Status Priority Diagnosed Code COPD (chronic obstructive pulmonary disease) Acute J44.9 Hypertension Acute I10 Hypothyroidism Acute E03.9 Pneumonia Acute J18.9 History of coronary artery disease Chronic Z86.79 Diagnostic Data, Laboratory Data, and Procedures of Signifigance: Laboratory Results 02/26/17 02/26/17 02/26/17 Range/Units 00:49 00:53 01:00 WBC 11.10 H (4.8-10.8) 10^3/uL RBC 6.01 (4.70-6.10) 10^6/uL Hgb 16.8 (14.0-18.0) g/dL Hct 50.9 (42.0-52.0) % MCV 84.7 (80-90) FL MCH 28.0 (27-31) PG MCHC 33.0 (33-37) g/dL RDW Std Deviation 72.8 H (39-50) fL RDW Coeff of Kevin 24.5 H (11.5-14.5) % Plt Count 136 L (140-350) 10*3/uL MPV 11.2 (7.4-12.2) FL Immature Gran % (Auto) 0.2 (0-5) % Neut % (Auto) 78.1 (50-80) % Lymph % (Auto) 11.5 (10-50) % [place] % (Auto) 9.5 (5-15) % Eos % (Auto) 0.2 (0-8) % Baso % (Auto) 0.5 (0-1) % Immature Gran # (Auto) 0.02 10*3/UL Neut # (Auto) 8.67 10*3/UL Lymph # (Auto) 1.28 10*3/uL [place] # (Auto) 1.05 H (0.3-0.8) 10*3/UL Eos # (Auto) 0.02 10*3/UL Baso # (Auto) 0.06 10*3/UL WBC Morphology Comment Normal morphology (NORM) Plt Morphology Comment See comments (NORM) RBC Morph Comment Normal morphology (NORM) PT 13.4 H (9.7-11.4) secs INR 1.29 (0.00-5.90) N/A ABG pH 7.42 (7.35-7.45) ABG pCO2 33 L (34-38) MMHG ABG pO2 65 (65-75) MMHG ABG HCO3 21 L (22-26) ABG Total CO2 22 L (23-27) MMOL/L ABG O2 Saturation 93 (90-100) % ABG Base Excess -3 L (-2-2) MMOL/L Billy Test Yes FiO2 3l Sodium 145 (135-145) meq/L Potassium 4.4 (3.8-5.2) meq/L Chloride 105 (98-112) meq/L Carbon Dioxide 24 (23-33) meq/L Anion Gap 16 (5-20) BUN 36 H (7-22) mg/dL Creatinine 2.0 H (0.70-1.50) mg/dL Estimated GFR Convenience Store Manager BUN/Creatinine Ratio 18.00 (6-20) Glucose 122 H (78-110) mg/dL Calculated Osmolality 308.0 H (267-292) mOsm/kg Lactic Acid 2.4 H (0.70-2.10) MMOL/L Calcium 9.3 (8.7-10.7) mg/dL Magnesium 2.1 (1.6-2.4) mg/dL Total Bilirubin 2.6 H (0.3-1.2) mg/dL AST 52 (21-57) IU/L ALT 32 (21-72) IU/L Alkaline Phosphatase 79 (38-126) IU/L C-Reactive Protein 5.6 H (0.0-0.9) mg/dL Total Protein 7.4 (6.1-8.0) g/dL Albumin 4.3 (3.5-4.8) g/dL Globulin 3.1 (2.50-4.10) g/dL Albumin/Globulin Ratio 1.30 (1.3-2.0) mg/g Ur Collection Type Clean catch urine Urine Color Yellow Urine Clarity Clear (CLEAR) Urine pH 5.5 (5.0-8.5) Ur Specific [place] 1.020 (1.005-1.030) Urine Protein 100 (NEG) mg/dl Urine Glucose (UA) Negative (NEG) mg/dL Urine Ketones 15 (NEG) Urine Occult Blood Moderate (NEG) Urine Nitrate Negative (NEG) Urine Bilirubin Moderate (NEG) Urine Urobilinogen 1.0 (0.2) mg/dL Ur Leukocyte Esterase Negative (NEG) Urine RBC 2-4 (NONE) /hpf Urine WBC 1-3 (NONE) Ur Squamous Epith Cells Rare (NONE) Ur Renal Epithelial Cell None (NONE) Urine Crystals None Urine Bacteria Rare (NONE) Urine Casts None Urine Mucus None (NONE) Urine Trichomonas None (NONE) Urine Yeast None (NONE) Serum Alcohol < 10 (0-10) mg/dL 02/27/17 02/28/17 03/01/17 Range/Units 05:37 04:48 04:36 WBC 9.03 6.73 4.86 (4.8-10.8) 10^3/uL RBC 5.59 5.26 5.38 (4.70-6.10) 10^6/uL Hgb 15.7 14.7 15.2 (14.0-18.0) g/dL Hct 48.1 45.3 46.0 (42.0-52.0) % MCV 86.0 86.1 85.5 (80-90) FL MCH 28.1 27.9 28.3 (27-31) PG MCHC 32.6 L 32.5 L 33.0 (33-37) g/dL RDW Std Deviation 73.5 H 71.7 H 71.2 H (39-50) fL RDW Coeff of Kevin 24.5 H 23.7 H 23.4 H (11.5-14.5) % Plt Count 127 L 129 L 121 L (140-350) 10*3/uL MPV 11.6 10.8 (7.4-12.2) FL Immature Gran % (Auto) 0.1 0.3 0.2 (0-5) % Neut % (Auto) 72.5 65.1 81.1 H (50-80) % Lymph % (Auto) 14.7 19.0 15.0 (10-50) % [place] % (Auto) 10.3 11.0 3.3 L (5-15) % Eos % (Auto) 1.8 4.2 0.2 (0-8) % Baso % (Auto) 0.6 0.4 0.2 (0-1) % Immature Gran # (Auto) 0.01 0.02 0.01 10*3/UL Neut # (Auto) 6.55 4.38 3.94 10*3/UL Lymph # (Auto) 1.33 1.28 0.73 10*3/uL [place] # (Auto) 0.93 H 0.74 0.16 L (0.3-0.8) 10*3/UL Eos # (Auto) 0.16 0.28 0.01 10*3/UL Baso # (Auto) 0.05 0.03 0.01 10*3/UL WBC Morphology Comment Normal morphology Normal morphology Normal morphology (NORM) Plt Morphology Comment See comments Normal morphology Normal morphology ( NORM) RBC Morph Comment See comments See comments See comments (NORM) PT (9.7-11.4) secs INR (0.00-5.90) N/A ABG pH (7.35-7.45) ABG pCO2 (34-38) MMHG ABG pO2 (65-75) MMHG ABG HCO3 (22-26) ABG Total CO2 (23-27) MMOL/L ABG O2 Saturation (90-100) % ABG Base Excess (-2-2) MMOL/L Billy Test FiO2 Sodium 143 139 137 (135-145) meq/L Potassium 3.7 L 3.5 L 5.0 D (3.8-5.2) meq/L Chloride 106 104 102 (98-112) meq/L Carbon Dioxide 24 25 24 (23-33) meq/L Anion Gap 13 10 11 (5-20) BUN 33 H 30 H 32 H (7-22) mg/dL Creatinine 1.7 H 1.7 H 1.8 H (0.70-1.50) mg/dL Estimated GFR Convenience Store Manager Convenience Store Manager Convenience Store Manager BUN/Creatinine Ratio 19.41 17.64 17.77 (6-20) Glucose 87 82 136 H (78-110) mg/dL Calculated Osmolality 301.0 H 292.0 292.0 (267-292) mOsm/kg Lactic Acid (0.70-2.10) MMOL/L Calcium 8.3 L 7.9 L 8.3 L (8.7-10.7) mg/dL Magnesium 1.9 (1.6-2.4) mg/dL Total Bilirubin 0.8 0.9 (0.3-1.2) mg/dL AST 33 34 (21-57) IU/L ALT 37 39 (21-72) IU/L Alkaline Phosphatase 54 60 (38-126) IU/L C-Reactive Protein (0.0-0.9) mg/dL Total Protein 5.5 L 6.1 (6.1-8.0) g/dL Albumin 3.0 L 3.5 (3.5-4.8) g/dL Globulin 2.5 2.7 (2.50-4.10) g/dL Albumin/Globulin Ratio 1.20 L 1.20 L (1.3-2.0) mg/g Ur Collection Type Urine Color Urine Clarity (CLEAR) Urine pH (5.0-8.5) Ur Specific [place] (1.005-1.030) Urine Protein (NEG) mg/dl Urine Glucose (UA) (NEG) mg/dL Urine Ketones (NEG) Urine Occult Blood (NEG) Urine Nitrate (NEG) Urine Bilirubin (NEG) Urine Urobilinogen (0.2) mg/dL Ur Leukocyte Esterase (NEG) Urine RBC (NONE) /hpf Urine WBC (NONE) Ur Squamous Epith Cells (NONE) Ur Renal Epithelial Cell (NONE) Urine Crystals Urine Bacteria (NONE) Urine Casts Urine Mucus (NONE) Urine Trichomonas (NONE) Urine Yeast (NONE) Serum Alcohol (0-10) mg/dL 03/02/17 Range/Units 09:30 WBC (4.8-10.8) 10^3/uL RBC (4.70-6.10) 10^6/uL Hgb (14.0-18.0) g/dL Hct (42.0-52.0) % MCV (80-90) FL MCH (27-31) PG MCHC (33-37) g/dL RDW Std Deviation (39-50) fL RDW Coeff of Kevin (11.5-14.5) % Plt Count (140-350) 10*3/uL MPV (7.4-12.2) FL Immature Gran % (Auto) (0-5) % Neut % (Auto) (50-80) % Lymph % (Auto) (10-50) % [place] % (Auto) (5-15) % Eos % (Auto) (0-8) % Baso % (Auto) (0-1) % Immature Gran # (Auto) 10*3/UL Neut # (Auto) 10*3/UL Lymph # (Auto) 10*3/uL [place] # (Auto) (0.3-0.8) 10*3/UL Eos # (Auto) 10*3/UL Baso # (Auto) 10*3/UL WBC Morphology Comment (NORM) Plt Morphology Comment (NORM) RBC Morph Comment (NORM) PT (9.7-11.4) secs INR (0.00-5.90) N/A ABG pH (7.35-7.45) ABG pCO2 (34-38) MMHG ABG pO2 (65-75) MMHG ABG HCO3 (22-26) ABG Total CO2 (23-27) MMOL/L ABG O2 Saturation (90-100) % ABG Base Excess (-2-2) MMOL/L Billy Test FiO2 Sodium 135 (135-145) meq/L Potassium 3.9 D (3.8-5.2) meq/L Chloride 99 (98-112) meq/L Carbon Dioxide 24 (23-33) meq/L Anion Gap 12 (5-20) BUN 40 H (7-22) mg/dL Creatinine 1.7 H (0.70-1.50) mg/dL Estimated GFR Convenience Store Manager BUN/Creatinine Ratio 23.52 H (6-20) Glucose 131 H (78-110) mg/dL Calculated Osmolality 291.0 (267-292) mOsm/kg Lactic Acid (0.70-2.10) MMOL/L Calcium 8.6 L (8.7-10.7) mg/dL Magnesium (1.6-2.4) mg/dL Total Bilirubin 0.8 (0.3-1.2) mg/dL AST 51 (21-57) IU/L ALT 41 (21-72) IU/L Alkaline Phosphatase 52 (38-126) IU/L C-Reactive Protein (0.0-0.9) mg/dL Total Protein 6.5 (6.1-8.0) g/dL Albumin 3.7 (3.5-4.8) g/dL Globulin 2.8 (2.50-4.10) g/dL Albumin/Globulin Ratio 1.30 (1.3-2.0) mg/g Ur Collection Type Urine Color Urine Clarity (CLEAR) Urine pH (5.0-8.5) Ur Specific [place] (1.005-1.030) Urine Protein (NEG) mg/dl Urine Glucose (UA) (NEG) mg/dL Urine Ketones (NEG) Urine Occult Blood (NEG) Urine Nitrate (NEG) Urine Bilirubin (NEG) Urine Urobilinogen (0.2) mg/dL Ur Leukocyte Esterase (NEG) Urine RBC (NONE) /hpf Urine WBC (NONE) Ur Squamous Epith Cells (NONE) Ur Renal Epithelial Cell (NONE) Urine Crystals Urine Bacteria (NONE) Urine Casts Urine Mucus (NONE) Urine Trichomonas (NONE) Urine Yeast (NONE) Serum Alcohol (0-10) mg/dL History and Physical pertinent to Admission: Past Medical History Medical History: 1. Coronary artery disease with multiple stents multiple stents. 2. COPD supposed to be on oxygen but I'm unsure whether he is wearing it. 3. Chronic renal failure stage III. 4. Peripheral neuropathy. 5. Hypertension. 6. GERD. 7. Hypercholesteremia. 8. Hypothyroidism. Surgical History: 1. Coronary disease with 4 stents never had an SC. 2. Carotid endarterectomy. 3. Cholecystectomy. 4. Low back surgery. 5. Bilateral cataract removal. 6. Left cheek surgery Pertinent Family History: No premature coronary artery disease or cancers Past Social History: Patient lives with a friend, used to smoke, don't drink. And no drugs. Tobacco Use: Former Smoker Substance Use Type: None Alcohol Use: None Course of Hospitalization: This very nice 86-year-old gentleman with multiple medical issues significant for severe emphysema, COPD, chronic renal failure, coronary artery disease with multiple stents, hypertension, GERD, peripheral neuropathy and high cholesterol comes to the hospital because of increased shortness of breath was treated for pneumonia but CAT scan revealed severe emphysema with scarring patient did well throughout his hospital stay underwent antibiotic therapy plus steroids and inhalers PTOT also worked with the patient and his strength is a very good apparently at home he had his own oxygen machines but was not getting enough and according to his significant other and he had the episodes of the passing out the off because of low oxygen. Here he desats very quickly when he ambulates even on 8 L. Dwayne is visiting with the patient to provide adequate oxygen they know of the severity of the situation including the multiple risk factors and the severity as of his emphysema. RUBEN had the discussion with the significant other which she has agreed to take care of the patient had 24 7 as a basketball scout she also told me this in the room with her son patient's son present. He will need to follow-up with his physician on a regular basis On the date of discharge, the patient was examined: Gen.: No acute distress, alert, nontoxic Heart: Regular rate and rhythm, no murmurs, clicks, gallops, or rubs Lungs: Clear to auscultation bilaterally, breathing is nonlabored Abdomen/GI: Normal tones on auscultation, soft, nontender, nondistended Musculoskeletal/extremities: No clubbing, cyanosis, or edema Vitals reviewed and are listed below Assessment and Plan: 1. As per discharge assessments above 2. Disposition: Home 3. Condition on discharge, stable and improved. 4. Diet: regular diet 5. Activities: resume normal activities 6. Follow-Up: 1. PCP Malinda on Monday 2. 7. Medications at the Time of Discharge: Home Medications Medication Instructions Recorded Confirmed Type Multivitamin [Multivitamins] 1 each PO DAILY 08/01/11 02/26/17 History Clopidogrel Bisulfate [Plavix] 1 tab PO DAILY #90 tab 05/03/16 02/26/17 Clinic Amlodipine Besylate 1 tab PO QHS #90 tab 11/21/16 02/26/17 Clinic Gabapentin 1 cap PO QHS #90 cap 11/21/16 02/26/17 Clinic Levothyroxine Sodium 1 tab ORAL QAM #90 tab 11/21/16 02/26/17 Clinic Omeprazole 1 cap ORAL BID #180 capsule 11/21/16 02/26/17 Clinic Simvastatin 1 tab ORAL QHS #90 tab 11/21/16 02/26/17 Clinic Furosemide 1 tab PO DAILY #90 tab 12/27/16 02/26/17 Clinic Hydralazine HCl 1 tab PO TID #270 tab 12/27/16 02/26/17 Clinic Flutica/Salmet 250/50 Inhaler 1 puff INH RTBID #30 inhaler 03/02/17 Rx [Advair Diskus 250/50 Inhaler] Tiotropium Inhalation Cap 18 mcg INH RTDAILY #1 inhaler 03/02/17 Rx [Spiriva Inhalation Cap] predniSONE Tab [Deltasone Tab] 40 mg PO DAILY #5 tab 03/02/17 Rx 8. Time, care, counseling and coordination of care for this discharge is greater than 30 minutes. Exam - Vitals Vital Signs: Vital Signs Temperature 97.3 F Temperature Source Temporal Artery Scan Pulse Rate [Left Apical] 74 Pulse Rate [Pulse Oximeter] 76 Pulse Rate 73 Respiratory Rate 18 Blood Pressure [Left Arm] 131/61 Blood Pressure [Right Arm] 124/55 Pulse Ox 90 Oxygen Flow Rate 5.5 Oxygen Delivery Method Nasal Cannula Height 5 ft 8 in Weight 78.018 kg Patient Problems - Patient Problem List (1) Pneumonia Current Visit: Yes Status: Acute (2) COPD (chronic obstructive pulmonary disease) Current Visit: Yes Status: Acute (3) Hypertension Current Visit: Yes Status: Acute (4) Coronary disease Current Visit: No Status: Chronic (5) History of coronary artery disease Current Visit: Yes Status: Chronic (6) Renal impairment Current Visit: No Status: Acute
== END 2017-03-02 16:47 | disposition home or self-care (01) | DRG 195 ==
LOC: ER 00:13 → MED/SURG 03:26
PROVIDERS: ADMIT Internal Medicine; ATTEND Internal Medicine
DX: J18.9 Pneumonia, unspecified organism (principal); R53.1 Weakness; R41.0 Disorientation, unspecified; J44.9 Chronic obstructive pulmonary disease, unspecified; I10 Essential (primary) hypertension; E03.9 Hypothyroidism, unspecified; Z86.79 Personal history of other diseases of the circulatory system; N28.9 Disorder of kidney and ureter, unspecified
CPT/HCPCS: 36415; 36600; 70450; 71020; 80053; 80320; 81001; 82803; 83605; 83735; 85025; 85610; 86140; 87040; 93005; 93010; 94640; 99284 ×2; J0456; J7620; 71250; 80048; 94761; 97110; 97112; 97161; 97166; 97530; 97535; J0696; J7050; J7512

== ENCOUNTER → 2017-03-06 | Outpatient (CLI) | payer OTHER, MEDICARE | LOC: MMPC 10:00 | PROVIDERS: ATTEND Nurse Practitioner Family | DX: J44.1 Chronic obstructive pulmonary disease with (acute) exacerbation (principal) | CPT/HCPCS: 99213 ==

== ENCOUNTER 2017-04-06 14:25 | Inpatient (IN) | payer OTHER, MEDICARE ==
[2017-04-06] MEDS ORDERED: NORMAL SALINE 10 ML SYRINGE FLUSH IVP PRN ×3 (14:44→17:40)
[2017-04-06] MEDS ORDERED: Sodium Chloride 0.9% 1,000 ML PRIMARY IV ONE ×2 (14:44→17:40)
[2017-04-06] MEDS ORDERED: IPRATROPIUM/ALBUTEROL SULFATE 3 ML NEB NEB ONE (14:44)
[2017-04-06 14:59] LABS: BASOPHILS % (AUTO) 0.8 % (0-1); EOSINOPHILS % (AUTO) 2.7 % (0-8); HEMATOCRIT 44.5 % (42.0-52.0); HEMOGLOBIN 14.3 g/dL (14.0-18.0); LYMPHOCYTES # (AUTO) 1.17 10*3/uL; MEAN CORPUSCULAR HEMOGLOBIN 29.7 PG (27-31); MEAN CORPUSCULAR HGB CONC 32.1 g/dL (33-37); MEAN CORPUSCULAR VOLUME 92.3 FL (80-90); MONOCYTES # (AUTO) 0.49 10*3/UL (0.3-0.8); MONOCYTES % (AUTO) 9.5 % (5-15); NEUTROPHILS # (AUTO) 3.28 10*3/UL; NEUTROPHILS % (AUTO) 63.8 % (50-80); RED BLOOD COUNT 4.82 10^6/uL (4.70-6.10)
[2017-04-06 15:00] LABS: BASOPHILS # (AUTO) 0.04 10*3/UL; EOSINOPHILS # (AUTO) 0.14 10*3/UL; PLATELET MORPHOLOGY COMMENT NORMAL MORPHOLOGY (NORM); WBC MORPHOLOGY COMMENT NORMAL MORPHOLOGY (NORM)
[2017-04-06 15:04] LABS: BLOOD UREA NITROGEN 25 mg/dL (7-22); BUN/CREATININE RATIO 11.36 (6-20); SERUM ALBUMIN 4.1 g/dL (3.5-4.8)
--- NOTE | 2017-04-06 15:07 | EKG ---
[address] [place] [address] Measurements Intervals [place] Rate: 70 P: 137 CT: 256 QRS: -60 QRSD: 121 T: 74 QT: 402 QTc: 422 Interpretive Statements ELECTRONIC ATRIAL PACEMAKER LEFT ANTERIOR FASCICULAR BLOCK [QRS AXIS <= -45, QR IN I, RS IN II] ST DEVIATION AND MARKED T-WAVE ABNORMALITY, CONSIDER ANTERIOR ISCHEMIA [-0.5+ mV T WAVE IN V3/V4] Compared to ECG 02/27/2017 06:50:06 Left anterior fascicular block now present Right-axis deviation no longer present T-wave abnormality still present Possible ischemia still present Electronically Signed On 04-07-17 07:48:31 MDT by Emiliano Yoo MD [email or web address]
[2017-04-06 15:09] LABS: RBC MORPHOLOGY COMMENT SEE COMMENTS (NORM)
[2017-04-06 15:16] LABS: ABG PCO2 46 MMHG (34-38); ABG PH 7.33 (7.35-7.45); ABG PO2 34 MMHG (65-75); COLLECTION SITE LEFT RADIAL
[2017-04-06 15:17] LABS: ABG BASE EXCESS -2 MMOL/L (-2-2); ABG OXYGEN SATURATION 61 % (90-100); ALLEN TEST YES
[2017-04-06] MEDS ORDERED: cefTRIAXone Inj 1 GM in Sodium Chloride 0.9% 100 ML IV ONE (15:57)
[2017-04-06] MEDS ORDERED: LIDOCAINE W/ SODIUM BICARB 0.5 ML SYR SUBD PRN (17:40)
[2017-04-06] MEDS ORDERED: ONDANSETRON 4 MG/2 ML VIAL IV PRN (17:40)
--- NOTE | 2017-04-06 18:17 | PDOC ---
General Adult HPI - General Chief Complaint: Dyspnea Stated Complaint: syncope, dyspnea Date Seen by Provider: 04/06/17 Time Seen by Provider: 14:30 Source: POSITIVE: Patient, Spouse Exam Limitations: POSITIVE: No limitations Nurse's Notes Reviewed & Considered: Yes - History of Present Illness Initial Comment: The patient is an 86-year-old male. He presents to the emergency room with his . reports that she and the patient were exiting a restaurant and just before the mated to their car patient had a syncopal episode and fell backwards. reports that the patient has had similar episodes in the past. Patient is also been somewhat more short of breath lately and has had a cough for the past 4 or 5 days. The patient's took the patient to the medical clinic, who sent the patient here for evaluation. The patient has a history of prominent COPD and he has had pneumonia in the past. He is on 4 L of oxygen per minute at home. He has a cardiac pacemaker. He is not aware that he's ever had a myocardial infarction. No known fevers or chills. Cough is abductive mucoid sputum. No chest pain. No GI or symptoms. Have you received a tetanus shot in the past 10 years?: Yes Body Location Affected: REPORTS: Chest (Dyspnea and cough), Other (Syncope) Timing: REPORTS: Gradual, Getting Worse (Dyspnea and cough gradual over the last 3-5 days) Duration: >24 hours Severity: Moderate Quality: REPORTS: Other (Patient denies any pain anywhere) Context: REPORTS: Coughing, Recent Trauma (Patient fell when he had a syncopal episode, but he denies any injuries.), Fall (As above) Modifying Factors: improves with: Nothing Similar Symptoms Previously: Yes Recent Care Received: REPORTS: Denies Any Prior Injuries Related to Current Complaint?: No - Patient Home Medications Home Medications: Home Medications Multivitamin [Multivitamins] 1 each PO DAILY 08/01/11 Clopidogrel Bisulfate [Plavix] 1 tab PO DAILY #90 tab 05/03/16 Levothyroxine Sodium 1 tab ORAL QAM #90 tab 11/21/16 Omeprazole 1 cap ORAL BID #180 capsule 11/21/16 Simvastatin 1 tab ORAL QHS #90 tab 11/21/16 Furosemide 1 tab PO DAILY #90 tab 12/27/16 Hydralazine HCl 1 tab PO TID #270 tab 12/27/16 Flutica/Salmet 250/50 Inhaler [Advair Diskus 250/50 Inhaler] 1 puff INH RTBID # 30 inhaler 03/02/17 Tiotropium Inhalation Cap [Spiriva Inhalation Cap] 18 mcg INH RTDAILY #1 inhaler 03/02/17 Amlodipine Besylate 1 tab PO QHS #90 tab 03/03/17 Gabapentin 1 cap PO QHS #90 cap 03/20/17 - Patient Allergies Allergies/Adverse Reactions: Allergies Allergy/AdvReac Type Severity Reaction Status Date / Time No Known Drug Allergies Allergy Unknown NOT Verified 04/06/17 17:39 APPLICABLE Past Medical History - heen HEENT History: Cataracts, Dentures/Partials Cardiovascular History: Hypertension, Hyperlipidemia Additional Cardiovasular History: HAS HAD CARIDAC x4 STENTS DUE TO BLOCKAGE/ NEVER HAD KS OR ANGINA Respiratory History: Other (please comment) Additional Respiratory History: QUIT SMOKING 1984, 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 Gastrointestinal History: GERD Genitourinary History: Denies History Endocrine History: Hypothyroidism Musculoskeletal History: Back Pain, Back Injury, Other (please comment) Prosthesis or Implant: Yes (CARDIAC STENTS) Additional Musculoskeletal History: hx foot pain, chronic shoulder pain Neurological History: Denies History Blood Disorders: Denies History Psychiatric History: Denies History History of Sexually Transmitted Diseases: No Cancer History: Skin In Past Year Been Physically Harmed or Verbally Threatened: No History of MDRO: No History of Other Communicable Diseases: No Tobacco Use: Former Smoker Alcohol Use: None Substance Use Type: None Previous Surgical History: Yes Type / Date of Surgery: CARDIAC STENTS X4, CAROTID ENDARTARECTOMY, CHOLECYSTECTOMY, LOW BACK SURGERY, BILAT CATARACT REMOVAL, LEFT CHEEK SURGERY Anesthesia Reactions: No Malignant Hyperthermia: No Significant Family History: No pertinent family hx Past Medical History Reviewed: Reviewed - No Changes ROS - Limitations ROS Limitations: No Limitations Constitution: REPORTS: Weakness Cardiovascular: REPORTS: Denies Cardiac Symptoms Respiratory: REPORTS: Cough Productive, Shortness Of Breath Neurological: REPORTS: Fainting (Syncope just SOLE MOLDER as above) Gastrointestinal: REPORTS: Denies GI Symptoms Endocrine: REPORTS: Denies Symptoms Musculoskeletal: REPORTS: Denies MS Symptoms Genitourinary: REPORTS: Denies Symptoms Eyes: REPORTS: Denies Symptoms ENT: REPORTS: Denies Symptoms Skin: REPORTS: Denies Skin Symptoms Lympathic: REPORTS: Denies Lympathic Symptoms Immunologic: POSITIVE: Denies Symptoms Psychiatric: POSITIVE: Denies Psych Symptoms General Adult Exam - General Appearance General Appearance: POSITIVE: Alert, Cooperative, No Acute Distress, No Evidence of Trauma - HEENT HEENT: POSITIVE: Head Inspection Nml, Eyes Inspection Nml, Ears Inspection Nml, Nose Inspection Nml, Oral/Dental Inspect. Nml, Pharynx Inspect. Nml, PERRL, EOMI - Pupils Pupil Size: 3 mm: Bilateral (PERR L) - Neck Neck: POSITIVE: Normal Inspection, Thyroid Normal - Respiratory Respiratory: POSITIVE: Chest Non-Tender, Rhonchi (Both lung bases). NEGATIVE: No Respiratory Distress (Patient hypoxic; SaO2 around 80 on arrival. Saturation improves with oxygen by nonrebreather mask to 92-94%) - Cardiovascular Cardiovascular: POSITIVE: Regular Rate & Rhythm, No Murmur, No Gallop, PMI Normal Peripheral Pulses: Radial (R): 2+, Radial (L): 2+ - Abdomen Abdomen: Soft: (All Quadrants), Normal Bowel Sounds: (All Quadrants), Denies Tenderness: (All Quadrants), No Splenomegaly: (All Quadrants), No Hepatomegaly: (All Quadrants), No Guarding: (All Quadrants), No Rebound: (All Quadrants), No Palpable Pulse: (All Quadrants), No Palpabale Mass: (All Quadrants), No Distention: (All Quadrants), No Rigidity: (All Quadrants) - Back Back: POSITIVE: Normal Inspection - Skin Skin: POSITIVE: Other (Somewhat cyanotic about the face and neck on arrival; color improved quickly with oxygen supplementation) - Extremities Extremity: Non-Tender: (All Extremities), Normal ROM: (All Extremities), Normal Inspection: (All Extremities) - Neurological / Psychological Neurological: 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, 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 Normal As Tested, Motor Normal, Sensation Normal, 5, 6 General Adult Progress - Results Reviewed by me Xrays/CTs/US Reviewed by me: Yes Discussed with Radiologist: Yes Radiology Findings: Chest x-ray shows right lower lobe infiltrate Lab Results Reviewed: Yes (2 blood cultures drawn) Lab Results:: Laboratory Results 04/06/17 04/06/17 04/06/17 Range/Units 14:52 14:59 15:00 WBC 5.14 (4.8-10.8) 10^3/uL RBC 4.82 (4.70-6.10) 10^6/uL Hgb 14.3 (14.0-18.0) g/dL Hct 44.5 (42.0-52.0) % MCV 92.3 H (80-90) FL MCH 29.7 (27-31) PG MCHC 32.1 L (33-37) g/dL RDW Std Deviation 80 H (39-50) fL RDW Coeff of Kevin 24.1 H (11.5-14.5) % Plt Count 174 (140-350) 10*3/uL MPV 10.0 (7.4-12.2) FL Immature Gran % (Auto) 0.4 (0-5) % Neut % (Auto) 63.8 (50-80) % Lymph % (Auto) 22.8 (10-50) % [place] % (Auto) 9.5 (5-15) % Eos % (Auto) 2.7 (0-8) % Baso % (Auto) 0.8 (0-1) % Immature Gran # (Auto) 0.02 10*3/UL Neut # (Auto) 3.28 10*3/UL Lymph # (Auto) 1.17 10*3/uL [place] # (Auto) 0.49 (0.3-0.8) 10*3/UL Eos # (Auto) 0.14 10*3/UL Baso # (Auto) 0.04 10*3/UL WBC Morphology Comment Normal morphology (NORM) Plt Morphology Comment Normal morphology (NORM) RBC Morph Comment See comments (NORM) PT 11.4 (9.7-11.4) secs INR 1.07 (0.00-5.90) N/A D-Dimer 1.51 H (0.00-0.59) mg/L ABG pH 7.33 L (7.35-7.45) ABG pCO2 46 H (34-38) MMHG ABG pO2 34 L (65-75) MMHG ABG HCO3 24 (22-26) ABG Total CO2 25 (23-27) MMOL/L ABG O2 Saturation 61 L (90-100) % ABG Base Excess -2 (-2-2) MMOL/L Billy Test Yes FiO2 10l/m mask Sodium 140 (135-145) meq/L Potassium 4.8 (3.8-5.2) meq/L Chloride 104 (98-112) meq/L Carbon Dioxide 25 (23-33) meq/L Anion Gap 11 (5-20) BUN 25 H (7-22) mg/dL Creatinine 2.2 H (0.70-1.50) mg/dL Estimated GFR Marketing Clerk BUN/Creatinine Ratio 11.36 (6-20) Glucose 120 H (78-110) mg/dL Calculated Osmolality 294.0 H (267-292) mOsm/kg Lactic Acid 2.3 H (0.70-2.10) MMOL/L Calcium 9.0 (8.7-10.7) mg/dL Total Bilirubin 0.8 (0.3-1.2) mg/dL AST 38 (21-57) IU/L ALT 35 (21-72) IU/L Alkaline Phosphatase 61 (38-126) IU/L Troponin I < 0.020 (< 0.040) ng/mL C-Reactive Protein 1.1 H (0.0-0.9) mg/dL NT-Pro-B Natriuret Pep 13923 H (0-450) PG/ML Total Protein 6.5 (6.1-8.0) g/dL Albumin 4.1 (3.5-4.8) g/dL Globulin 2.4 L (2.50-4.10) g/dL Albumin/Globulin Ratio 1.70 (1.3-2.0) mg/g EKG Interpreted/Reviewed By Me:: Yes (pacemaker rhythm) EKG Interpretation:: POSITIVE: Other (Pacemaker rhythm) - Patient's Progress Pain Medication Addressed: POSITIVE: Not Applicable School/Work Release Addressed: POSITIVE: Not Applicable Re-Examine Time: 16:00 Re-Examine Comment: Patient given a gram of Rocephin in the emergency room and was hydrated. Blood pressure on discharge is 100/60. BNP is elevated, so patient cautiously hydrated. Patient states he feels better on discharge. Status: POSITIVE: Improved, Re-Examined Antibiotics Given: Yes Quality Measure Initiative: CAP: POSITIVE: SaO2, Antibiotic(s), BC, CXR or CT - Consult Consult (If Yes, Name of Consulting MD & Time Called): Yes (, hospitalist , 1600 ) Counseled: POSITIVE: Patient, Family, RE: Lab Results, RE: Radiology Results, RE : DX, RE: Need for F/U Patient Care Time - Estimated PCT Patient Care Time (In Minutes): 55 Vital Signs - Recent Vital Signs Vital Signs: Vital Signs (Last 8 hours) Temp Pulse Pulse Resp BP Pulse Ox 04/06/17 17:30 98.0 F 70 24 106/64 91 04/06/17 14:44 79 04/06/17 14:32 97.5 F 79 18 76/51 73 - VS Reviewed Vital Signs Reviewed: Yes Discharge Clinical Impression: Respiratory insufficiency, Pneumonia due to infectious agent, Sepsis associated hypotension, CHF (congestive heart failure) Discharge Disposition: Admit to Inpatient Condition: Fair Date Decision to Admit to Inpatient: 04/06/17 Time Decision to Admit to Inpatient: 16:00
[2017-04-06] MEDS: Sodium Chloride 0.9% 1,000 ML PRIMARY IV SCH ×3 (18:38→20:30)
--- NOTE | 2017-04-06 19:09 | DI ---
XR CXR 2VW PA/LAT,04/06/2017 2:44 PM: Clinical History: Dyspnea Previous Exam: February 26, 2017 Findings: PA and lateral views of the chest are obtained, and demonstrate diffuse COPD. There is airspace disea se within the right lung base which does not appear to be as prominent on the prior exam. There is st able cardiomegaly and overlying EKG leads. Impression: Right lower lobe pneumonia. Recommend followup imaging after treatment to document resolution.
[2017-04-06] MEDS: OMEPRAZOLE 20 MG CAPSULE PO SCH (20:11)
[2017-04-06] MEDS ORDERED: GABAPENTIN 300 MG CAPSULE PO SCH (21:00)
[2017-04-06] MEDS ORDERED: Simvastatin Tab 10 MG TAB PO SCH (21:00)
--- NOTE | 2017-04-06 22:18 | PDOC ---
History and Physical - History of Present Illness Date and Time of Service: 04/06/2017, 1900 Chief Complaint: passed out History of Present Illness: This is a very pleasant 86 YO male, hard of hearing, who presents with complaint of passing out. He was eating lunch with a friend when he passed out walking back to the car. The patient denied any fever or chills, but is on 6 to 7 LPM of oxygen at home. He was brought into the hospital by his friend and was found to be very hypoxic in the 70% range, requiring a non rebreather mask at 10 LPM to maintain his saturations. CXR was done and was positive for pneumonia. The patient was noted to be hypotensive. He did report a worsening cough the past week. No production noted or complained about. The patient did feel better once oxygen saturations improved. He also reports a 30 pound weight loss. Past Medical History Medical History: 1. Coronary artery disease with multiple stents multiple stents. 2. COPD, apparently on 6-7 LPM. 3. Chronic renal failure stage III. 4. Peripheral neuropathy. 5. Hypertension. 6. GERD. 7. Hypercholesteremia. 8. Hypothyroidism. Surgical History: 1. Coronary disease with 4 stents never had an [place]. 2. Carotid endarterectomy. 3. Cholecystectomy. 4. Low back surgery. 5. Bilateral cataract removal. 6. Left cheek surgery Pertinent Family History: No premature coronary artery disease or cancers. FAther of complications of diabetes. Past Social History: Patient lives with a friend, used to smoke but quit in 1984 , does not drink. And no drugs. has a child and two step children. Tobacco Use: Former Smoker Substance Use Type: None Alcohol Use: None Medication / Allergies Home Medications: Home Medications Medication Instructions Recorded Confirmed Type Multivitamin [Multivitamins] 1 each PO DAILY 08/01/11 04/06/17 History Clopidogrel Bisulfate [Plavix] 1 tab PO DAILY #90 tab 05/03/16 04/06/17 Clinic Levothyroxine Sodium 1 tab ORAL QAM #90 tab 11/21/16 04/06/17 Clinic Omeprazole 1 cap ORAL BID #180 capsule 11/21/16 04/06/17 Clinic Simvastatin 1 tab ORAL QHS #90 tab 11/21/16 04/06/17 Clinic Furosemide 1 tab PO DAILY #90 tab 12/27/16 04/06/17 Clinic Hydralazine HCl 1 tab PO TID #270 tab 12/27/16 04/06/17 Clinic Flutica/Salmet 250/50 Inhaler 1 puff INH RTBID #30 inhaler 03/02/17 04/06/17 Rx [Advair Diskus 250/50 Inhaler] Tiotropium Inhalation Cap 18 mcg INH RTDAILY #1 inhaler 03/02/17 04/06/17 Rx [Spiriva Inhalation Cap] Amlodipine Besylate 1 tab PO QHS #90 tab 03/03/17 04/06/17 Clinic Gabapentin 1 cap PO QHS #90 cap 03/20/17 04/06/17 Clinic Allergies/Adverse Reactions: Allergies Allergy/AdvReac Type Severity Reaction Status Date / Time No Known Drug Allergies Allergy Unknown NOT Verified 04/06/17 17:39 APPLICABLE Review of Systems - Review of Systems All Systems: Reviewed & No Additional Complaints Except as Stated (I did a twelve point review of systems and it was negative except as per HPI and than noted below.) - Constitutional Constitutional: REPORTS: Weight Loss - Respiratory Respiratory: REPORTS: Cough - Cardiovascular Cardiovascular: REPORTS: Syncope (has been recurrent and has been attributed to hypoxemia.), Other (has pacemaker, not sure what for. not sure of last date of interrogation.) Exam - Vitals Vital Signs: Vital Signs Temperature 98.0 F Temperature Source Oral Pulse Rate [Telemetry] 70 Pulse Rate [Apical] 70 Pulse Rate [Pulse Oximeter] 70 Pulse Rate 70 Respiratory Rate 12 Blood Pressure [Right Arm] 135/86 Blood Pressure [Left Arm] 106/64 Blood Pressure 135/69 Pulse Ox 98 Oxygen Flow Rate 15 Oxygen Delivery Method Mask-Simple Height 5 ft 8 in Weight 184 lb 1.6 oz - General General Appearance: POSITIVE: Cooperative, Mild Distress Additional General Exam Details: despite higher oxygen requirements, patient is talking in complete sentences without accessory muscle use for breathing, and seems to be completing sentences without needing to take a breath. his breathing is non labored. 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 - GI/Abdominal GI/Abdominal Exam: POSITIVE: Normal Bowel Sounds, Non Tender, Non Distended, Soft - Rectal Rectal Exam: POSITIVE: Deferred - External Exam: POSITIVE: Deferred Exam: POSITIVE: Deferred - Extremities Extremities Exam: POSITIVE: No Clubbing Present, No Edema Present, No Cyanosis Present - Back Back Exam: POSITIVE: Normal Inspection, No CVA Tenderness - Neurological Neurological Exam: POSITIVE: Alert, Oriented x 3, No Facial Droop, Speech Intact / Clear, Moves All Extremities Equally - Psychiatric Psychiatric Exam: POSITIVE: Normal Affect, Normal Mood - Integumentary Additional Integumentary Exam Details: skin lesion left upper lateral chest wall as noted above. Results - Labs CBC and BMP: 04/06/17 14:52 04/06/17 14:52 - EKG Data EKG Interpretation: Other (rhythm strips shows what looks like an AV block, first degree.) - Imaging Status: Image Reviewed by Me (CXR postive for pneumonia on the right side on my view, pacemaker noted in correct location) Assessment and Plan - Patient Problems (1) Sepsis Current Visit: Yes Status: Acute Qualifiers: Sepsis type: sepsis due to unspecified organism Qualified Description: Sepsis, due to unspecified organism Qualifier Code(s): (A41.9) Sepsis, unspecified organism (2) Pneumonia Current Visit: Yes Status: Acute Qualifiers: Pneumonia type: due to unspecified organism Laterality: right Lung location: lower lobe of lung Qualified Description: Pneumonia of right lower lobe due to infectious organism Qualifier Code(s): (J18.1) Lobar pneumonia, unspecified organism (3) Syncopal episodes Current Visit: Yes Status: Acute Qualifiers: Syncope type: unspecified Qualified Description: Syncope, unspecified syncope type Qualifier Code(s): (R55) Syncope and collapse (4) COPD (chronic obstructive pulmonary disease) Current Visit: Yes Status: Chronic Qualifiers: COPD type: COPD with acute lower respiratory infection Qualified Description: Chronic obstructive pulmonary disease with acute lower respiratory infection Qualifier Code(s): (J44.0) Chronic obstructive pulmonary disease with acute lower respiratory infection (5) Hypertension Current Visit: Yes Status: Acute Qualifiers: Hypertension type: essential hypertension Qualified Description: Essential hypertension Qualifier Code(s): (I10) Essential (primary) hypertension (6) Hypothyroidism Current Visit: Yes Status: Chronic Qualifiers: Hypothyroidism type: acquired Qualified Description: Acquired hypothyroidism Qualifier Code(s): (E03.9) Hypothyroidism, unspecified (7) Coronary disease Current Visit: Yes Status: Chronic Qualifiers: Coronary Disease-Associated Artery/Lesion type: [place] artery [place] vs. transplanted heart: [place] heart Associated angina: without angina Qualified Description: Coronary artery disease involving [place] coronary artery of [place] heart without angina pectoris Qualifier Code(s): (I25.10) Atherosclerotic heart disease of [place] coronary artery without angina pectoris (8) Skin lesion of chest wall Current Visit: Yes Status: Acute - Assessment / Plan Additional Assessment/Plan Details: admit to the ICU, fluid resuscitation, consider vasopressors and central line if not improving with IV fluids IV rocephin and zithromax check labs tomorrow not clear if the syncopal episodes are due to hypoxia. I reviewed the clinic notes, and have some characteristics of seizure. cannot do MRI brain due to pacemaker. CT done about a month ago or so negative. may need to consider EEG as an outpatient?? will find out if any pacemaker interrogations have been done and discuss whether that can be done sometime oxygen as necessary to keep sats > 87% minimum, preferably 91% BC pending pneumovax (has only had one shot) code status is Do not resuscitate. discussed with the patient and his and they agree. I also discussed that the patient's CURB-65 score is 3 (13% mortality at 30 days) and PSI score is class V, with 157 points. I discussed that the patient could from this pneumonia despite treatment. The patient and his significant other understand.
[2017-04-06] MEDS ORDERED: Pneumococcal Vacc 13 Syringe 0.5 ML DISP.SYRIN IM ONE (22:42)
[2017-04-07] MEDS: Sodium Chloride 0.9% 1,000 ML PRIMARY IV SCH (05:02)
[2017-04-07] MEDS ORDERED: LEVOTHYROXINE 75 MCG TABLET PO SCH (05:30)
[2017-04-07 06:02] LABS: BLOOD UREA NITROGEN 22 mg/dL (7-22); BUN/CREATININE RATIO 12.22 (6-20); CALCIUM 7.8 mg/dL (8.7-10.7)
[2017-04-07] MEDS: IPRATROPIUM/ALBUTEROL SULFATE 3 ML NEB NEB PRN ×3 (06:35→15:13)
[2017-04-07 06:50] LABS: BASOPHILS % (AUTO) 0.2 % (0-1); EOSINOPHILS % (AUTO) 2.3 % (0-8); HEMATOCRIT 39.2 % (42.0-52.0); HEMOGLOBIN 12.5 g/dL (14.0-18.0); MEAN CORPUSCULAR HEMOGLOBIN 29.5 PG (27-31); MEAN CORPUSCULAR HGB CONC 31.9 g/dL (33-37); MEAN CORPUSCULAR VOLUME 92.5 FL (80-90); MEAN PLATELET VOLUME 10.2 FL (7.4-12.2); MONOCYTES % (AUTO) 11.1 % (5-15); NEUTROPHILS % (AUTO) 65.7 % (50-80); RED BLOOD COUNT 4.24 10^6/uL (4.70-6.10)
[2017-04-07 06:51] LABS: BASOPHILS # (AUTO) 0.01 10*3/UL; LYMPHOCYTES # (AUTO) 0.88 10*3/uL; MONOCYTES # (AUTO) 0.49 10*3/UL (0.3-0.8); NEUTROPHILS # (AUTO) 2.89 10*3/UL; PLATELET MORPHOLOGY COMMENT NORMAL MORPHOLOGY (NORM); WBC MORPHOLOGY COMMENT NORMAL MORPHOLOGY (NORM)
[2017-04-07 06:52] LABS: RBC MORPHOLOGY COMMENT SEE COMMENTS (NORM)
[2017-04-07] MEDS ORDERED: CLOPIDOGREL 75 MG TABLET PO SCH (09:00)
[2017-04-07] MEDS ORDERED: Multivitamin Tab 1 TAB PO SCH (09:00)
[2017-04-07] MEDS ORDERED: ENOXAPARIN SODIUM 40 MG/0.4 ML SYRINGE SUBCUT SCH (09:00)
[2017-04-07] MEDS: OMEPRAZOLE 20 MG CAPSULE PO SCH ×2 (09:20→21:17)
[2017-04-07] MEDS ORDERED: Pneumococcal Vacc 13 Syringe 0.5 ML DISP.SYRIN IM ONE (16:45)
--- NOTE | 2017-04-07 17:52 | PDOC(PROG) ---
Date and Time of Service: 04/07/2017, 1750 Interval History: Feeling better. Not having any presyncope or syncopal episodes. States to me that he had his pacemaker interrogated a month ago and was told it was fine. I do not have records at this time to review for that. No nausea or vomiting. Blood pressures of stabilize very well. Patient seems a little confused to me on time and situation, but is alert and oriented to person and place. Objective : Data - Labs CBC and BMP: 04/07/17 05:46 04/07/17 05:46 Labs - Last 24 Hours: Laboratory Results 04/06/17 04/06/17 04/07/17 Range/Units 23:10 23:32 05:46 WBC 4.40 L (4.8-10.8) 10^3/uL RBC 4.24 L (4.70-6.10) 10^6/uL Hgb 12.5 L (14.0-18.0) g/dL Hct 39.2 L (42.0-52.0) % MCV 92.5 H (80-90) FL MCH 29.5 (27-31) PG MCHC 31.9 L (33-37) g/dL RDW Std Deviation 78.8 H (39-50) fL RDW Coeff of Kevin 23.6 H (11.5-14.5) % Plt Count 134 L (140-350) 10*3/uL MPV 10.2 (7.4-12.2) FL Immature Gran % (Auto) 0.7 (0-5) % Neut % (Auto) 65.7 (50-80) % Lymph % (Auto) 20.0 (10-50) % [place] % (Auto) 11.1 (5-15) % Eos % (Auto) 2.3 (0-8) % Baso % (Auto) 0.2 (0-1) % Immature Gran # (Auto) 0.03 10*3/UL Neut # (Auto) 2.89 10*3/UL Lymph # (Auto) 0.88 10*3/uL [place] # (Auto) 0.49 (0.3-0.8) 10*3/UL Eos # (Auto) 0.10 10*3/UL Baso # (Auto) 0.01 10*3/UL WBC Morphology Comment Normal morphology (NORM) Plt Morphology Comment Normal morphology (NORM) RBC Morph Comment See comments (NORM) Sodium 140 (135-145) meq/L Potassium 5.2 (3.8-5.2) meq/L Chloride 112 (98-112) meq/L Carbon Dioxide 24 (23-33) meq/L Anion Gap 4 L (5-20) BUN 22 (7-22) mg/dL Creatinine 1.8 H (0.70-1.50) mg/dL Estimated GFR [employer] BUN/Creatinine Ratio 12.22 (6-20) Glucose 79 (78-110) mg/dL Calculated Osmolality 291.0 (267-292) mOsm/kg Lactic Acid 0.6 L 0.7 (0.70-2.10) MMOL/L Calcium 7.8 L (8.7-10.7) mg/dL Magnesium 2.0 (1.6-2.4) mg/dL Total Bilirubin 0.6 (0.3-1.2) mg/dL AST 25 (21-57) IU/L ALT 28 (21-72) IU/L Alkaline Phosphatase 50 (38-126) IU/L Total Protein 5.3 L (6.1-8.0) g/dL Albumin 3.0 L (3.5-4.8) g/dL Globulin 2.3 L (2.50-4.10) g/dL Albumin/Globulin Ratio 1.30 (1.3-2.0) mg/g Objective : Exam - General General Appearance: No Acute Distress, Cooperative Additional General Exam Details: Vital Signs - Last Taken Temperature 99 F 04/07/17 16:43 Pulse Rate 71 04/07/17 16:00 Respiratory Rate 17 04/07/17 16:00 Blood Pressure 148/64 04/07/17 16:00 Pulse Ox 95 04/07/17 15:00 - Head Head Exam: Normal Inspection, Normocephalic, Atraumatic - Eye Eye Exam: No Scleral Icterus - ENT ENT Exam: Mucous Membranes Moist - Respiratory Respiratory Exam: Clear to Auscultation - Bilaterally, Decreased Breath Sounds - Cardiovascular Cardiovascular Exam: RRR, No Murmur, No Clicks, No Gallops, No Rubs, No JVD - GI/Abdominal GI/Abdominal Exam: Normal Bowel Sounds, Non Tender, Non Distended, Soft - Extremities Extremities Exam: No Clubbing Present, No Cyanosis Present, +1 Edema (Trace edema in lower extremity is bilaterally.) - Neurological Neurological Exam: Alert, No Facial Droop, Speech Intact / Clear, Moves All Extremities Equally Assessment and Plan - Patient Problems (1) Pneumonia Current Visit: Yes Status: Acute Qualifiers: Pneumonia type: due to unspecified organism Laterality: right Lung location: lower lobe of lung Qualified Description: Pneumonia of right lower lobe due to infectious organism Qualifier Code(s): (J18.1) Lobar pneumonia, unspecified organism (2) Syncopal episodes Current Visit: Yes Status: Acute Qualifiers: Syncope type: unspecified Qualified Description: Syncope, unspecified syncope type Qualifier Code(s): (R55) Syncope and collapse (3) COPD (chronic obstructive pulmonary disease) Current Visit: Yes Status: Chronic Qualifiers: COPD type: COPD with acute lower respiratory infection Qualified Description: Chronic obstructive pulmonary disease with acute lower respiratory infection Qualifier Code(s): (J44.0) Chronic obstructive pulmonary disease with acute lower respiratory infection (4) Hypertension Current Visit: Yes Status: Acute Qualifiers: Hypertension type: essential hypertension Qualified Description: Essential hypertension Qualifier Code(s): (I10) Essential (primary) hypertension (5) Hypothyroidism Current Visit: Yes Status: Chronic Qualifiers: Hypothyroidism type: acquired Qualified Description: Acquired hypothyroidism Qualifier Code(s): (E03.9) Hypothyroidism, unspecified (6) Coronary disease Current Visit: Yes Status: Chronic Qualifiers: Coronary Disease-Associated Artery/Lesion type: [place] artery [place] vs. transplanted heart: [place] heart Associated angina: without angina Qualified Description: Coronary artery disease involving [place] coronary artery of [place] heart without angina pectoris Qualifier Code(s): (I25.10) Atherosclerotic heart disease of [place] coronary artery without angina pectoris (7) Skin lesion of chest wall Current Visit: Yes Status: Acute (8) Sepsis Current Visit: Yes Status: Resolved Qualifiers: Sepsis type: sepsis due to unspecified organism Qualified Description: Sepsis, due to unspecified organism Qualifier Code(s): (A41.9) Sepsis, unspecified organism - Assessment / Plan Additional Assessment/Plan Details: Continue antibiotics, day #2. Transfer out of the ICU and stop IV fluids. Check labs tomorrow. Get Pneumovax today. Continue oxygen with nonrebreather mask at 10 L per nasal cannula. I might do echocardiogram as well to reevaluate ejection fraction of one is not been done in some time. In addition, the patient tells me he was interrogated in terms of his pacemaker about a month ago, but it might be good to get the documentation on Monday if we are still having issues with syncope or presyncope symptoms. Likely this is because of severe or profound hypoxia noted and he is off of his oxygen and he is clearly noncompliant with it in my review of the clinic records despite his insistence that he complies with all the time. If I see his significant other here, I will ask her about this as well. Overall seems very weak I will order physical therapy and occupational therapy.
[2017-04-07] MEDS ORDERED: ONDANSETRON 4 MG/2 ML VIAL IV PRN (17:56)
[2017-04-07] MEDS ORDERED: LIDOCAINE W/ SODIUM BICARB 0.5 ML SYR SUBD PRN (17:56)
[2017-04-07] MEDS ORDERED: cefTRIAXone Inj 2 GM in Sodium Chloride 0.9% 100 ML IV SCH (18:00)
[2017-04-07] MEDS ORDERED: ASCORBIC ACID 500 MG TABLET PO ONE (18:17)
[2017-04-07] MEDS: cefTRIAXone Inj 2 GM in Sodium Chloride 0.9% 100 ML IV SCH (19:30)
[2017-04-07] MEDS: NORMAL SALINE 10 ML SYRINGE FLUSH IVP PRN (19:31)
[2017-04-07] MEDS: GABAPENTIN 300 MG CAPSULE PO SCH (21:17)
[2017-04-08] MEDS: Sodium Chloride 0.9% 1,000 ML PRIMARY IV SCH (01:34)
[2017-04-08] MEDS: LEVOTHYROXINE 75 MCG TABLET PO SCH (05:06)
[2017-04-08 05:32] LABS: BLOOD UREA NITROGEN 20 mg/dL (7-22); CALCIUM 8.3 mg/dL (8.7-10.7)
[2017-04-08] MEDS: IPRATROPIUM/ALBUTEROL SULFATE 3 ML NEB NEB PRN ×4 (06:33→18:53)
[2017-04-08 07:04] LABS: HEMOGLOBIN 12.4 g/dL (14.0-18.0); MEAN CORPUSCULAR HEMOGLOBIN 29.6 PG (27-31); MEAN CORPUSCULAR HGB CONC 31.8 g/dL (33-37); MEAN CORPUSCULAR VOLUME 93.1 FL (80-90); RED BLOOD COUNT 4.19 10^6/uL (4.70-6.10)
[2017-04-08 07:05] LABS: BASOPHILS # (AUTO) 0.02 10*3/UL; BASOPHILS % (AUTO) 0.4 % (0-1); EOSINOPHILS # (AUTO) 0.16 10*3/UL; EOSINOPHILS % (AUTO) 3.6 % (0-8); LYMPHOCYTES # (AUTO) 0.93 10*3/uL; MEAN PLATELET VOLUME 10.9 FL (7.4-12.2); MONOCYTES # (AUTO) 0.54 10*3/UL (0.3-0.8); NEUTROPHILS # (AUTO) 2.84 10*3/UL; NEUTROPHILS % (AUTO) 63.1 % (50-80); PLATELET MORPHOLOGY COMMENT NORMAL MORPHOLOGY (NORM); WBC MORPHOLOGY COMMENT NORMAL MORPHOLOGY (NORM)
[2017-04-08 07:06] LABS: RBC MORPHOLOGY COMMENT SEE COMMENTS (NORM)
[2017-04-08] MEDS: OMEPRAZOLE 20 MG CAPSULE PO SCH ×2 (08:46→21:10)
[2017-04-08] MEDS: CLOPIDOGREL 75 MG TABLET PO SCH (08:46)
[2017-04-08] MEDS: ASCORBIC ACID 500 MG TABLET PO SCH (08:46)
[2017-04-08] MEDS: Multivitamin Tab 1 TAB PO SCH (08:46)
[2017-04-08] MEDS ORDERED: FUROSEMIDE 10 MG/1 ML - 4 ML IVP ONE (09:33)
[2017-04-08] MEDS: NORMAL SALINE 10 ML SYRINGE FLUSH IVP PRN ×2 (10:54→17:44)
--- NOTE | 2017-04-08 16:05 | PDOC(PROG) ---
Date and Time of Service: 04/08/2017, 1603 Interval History: No chest pain. Breathing better. Still requiring 10 L per. Breathing very comfortably however. No nausea or vomiting. No abdominal pain. Objective : Data - Labs CBC and BMP: 04/08/17 04:30 04/08/17 04:30 Labs - Last 24 Hours: Laboratory Results 04/08/17 Range/Units 04:30 WBC 4.50 L (4.8-10.8) 10^3/uL RBC 4.19 L (4.70-6.10) 10^6/uL Hgb 12.4 L (14.0-18.0) g/dL Hct 39.0 L (42.0-52.0) % MCV 93.1 H (80-90) FL MCH 29.6 (27-31) PG MCHC 31.8 L (33-37) g/dL RDW Std Deviation 77.7 H (39-50) fL RDW Coeff of Kevin 23.0 H (11.5-14.5) % Plt Count 137 L (140-350) 10*3/uL MPV 10.9 (7.4-12.2) FL Immature Gran % (Auto) 0.2 (0-5) % Neut % (Auto) 63.1 (50-80) % Lymph % (Auto) 20.7 (10-50) % [place] % (Auto) 12.0 (5-15) % Eos % (Auto) 3.6 (0-8) % Baso % (Auto) 0.4 (0-1) % Immature Gran # (Auto) 0.01 10*3/UL Neut # (Auto) 2.84 10*3/UL Lymph # (Auto) 0.93 10*3/uL [place] # (Auto) 0.54 (0.3-0.8) 10*3/UL Eos # (Auto) 0.16 10*3/UL Baso # (Auto) 0.02 10*3/UL WBC Morphology Comment Normal morphology (NORM) Plt Morphology Comment Normal morphology (NORM) RBC Morph Comment See comments (NORM) Sodium 140 (135-145) meq/L Potassium 4.9 (3.8-5.2) meq/L Chloride 112 (98-112) meq/L Carbon Dioxide 23 (23-33) meq/L Anion Gap 5 (5-20) BUN 20 (7-22) mg/dL Creatinine 1.6 H (0.70-1.50) mg/dL Estimated GFR [employer] BUN/Creatinine Ratio 12.50 (6-20) Glucose 70 L (78-110) mg/dL Calculated Osmolality 290.0 (267-292) mOsm/kg Calcium 8.3 L (8.7-10.7) mg/dL NT-Pro-B Natriuret Pep 49659 H (0-450) PG/ML Objective : Exam - General General Appearance: No Acute Distress, Cooperative Additional General Exam Details: Vital Signs - Last Taken Temperature 99.1 F 04/08/17 11:11 Pulse Rate 68 04/08/17 11:11 Respiratory Rate 22 04/08/17 11:11 Blood Pressure 145/100 04/08/17 11:11 Pulse Ox 90 04/08/17 11:11 - Eye Eye Exam: No Scleral Icterus - ENT ENT Exam: Mucous Membranes Moist - Respiratory Respiratory Exam: Breathing Non Labored, Decreased Breath Sounds (In bases, but improved) - Cardiovascular Cardiovascular Exam: RRR, No Murmur, No Clicks, No Gallops, No Rubs, No JVD - GI/Abdominal GI/Abdominal Exam: Normal Bowel Sounds, Non Tender, Non Distended, Soft - Extremities Extremities Exam: No Clubbing Present, No Edema Present, No Cyanosis Present - Neurological Neurological Exam: Alert, Oriented x 3, No Facial Droop, Speech Intact / Clear, Moves All Extremities Equally Assessment and Plan - Patient Problems (1) Pneumonia Current Visit: Yes Status: Acute Comment: On antibiotics, day 3 today. Qualifiers: Pneumonia type: due to unspecified organism Laterality: right Lung location: lower lobe of lung Qualified Description: Pneumonia of right lower lobe due to infectious organism Qualifier Code(s): (J18.1) Lobar pneumonia, unspecified organism (2) Syncopal episodes Current Visit: Yes Status: Acute Qualifiers: Syncope type: unspecified Qualified Description: Syncope, unspecified syncope type Qualifier Code(s): (R55) Syncope and collapse (3) COPD (chronic obstructive pulmonary disease) Current Visit: Yes Status: Chronic Qualifiers: COPD type: COPD with acute lower respiratory infection Qualified Description: Chronic obstructive pulmonary disease with acute lower respiratory infection Qualifier Code(s): (J44.0) Chronic obstructive pulmonary disease with acute lower respiratory infection (4) Hypertension Current Visit: Yes Status: Acute Qualifiers: Hypertension type: essential hypertension Qualified Description: Essential hypertension Qualifier Code(s): (I10) Essential (primary) hypertension (5) Hypothyroidism Current Visit: Yes Status: Chronic Qualifiers: Hypothyroidism type: acquired Qualified Description: Acquired hypothyroidism Qualifier Code(s): (E03.9) Hypothyroidism, unspecified (6) Coronary disease Current Visit: Yes Status: Chronic Qualifiers: Coronary Disease-Associated Artery/Lesion type: [place] artery [place] vs. transplanted heart: [place] heart Associated angina: without angina Qualified Description: Coronary artery disease involving [place] coronary artery of [place] heart without angina pectoris Qualifier Code(s): (I25.10) Atherosclerotic heart disease of [place] coronary artery without angina pectoris (7) Skin lesion of chest wall Current Visit: Yes Status: Acute Comment: Remove either Monday or schedule outpatient with surgery, Dr. Thompson or Dr. Wise, for evaluation. - Assessment / Plan Additional Assessment/Plan Details: For now, I think we should continue with IV antibiotics although I think we can stop Zithromax safely at this point. I will check electrolytes in the morning. The patient was given Lasix this morning, and has urinated frequently throughout the day. His BNP was elevated although symptomatically he does not seem to have a lot of symptoms of congestive heart failure. I will check a chest x-ray tomorrow. Try to move to an Oxymizer possible so hopefully we can start titrating down his oxygen. I think it would be much more comfortable for the patient as well. I am fairly convinced that the patient does indeed have syncopal episodes in relation to his hypoxia.
[2017-04-08] MEDS: cefTRIAXone Inj 2 GM in Sodium Chloride 0.9% 100 ML IV SCH (17:45)
[2017-04-08] MEDS: GABAPENTIN 300 MG CAPSULE PO SCH (21:09)
[2017-04-09 05:49] LABS: BLOOD UREA NITROGEN 22 mg/dL (7-22); BUN/CREATININE RATIO 12.94 (6-20); CALCIUM 8.9 mg/dL (8.7-10.7); MAGNESIUM 1.9 mg/dL (1.6-2.4)
[2017-04-09] MEDS: LEVOTHYROXINE 75 MCG TABLET PO SCH (05:59)
[2017-04-09] MEDS: IPRATROPIUM/ALBUTEROL SULFATE 3 ML NEB NEB PRN ×3 (07:15→19:01)
[2017-04-09] MEDS: OMEPRAZOLE 20 MG CAPSULE PO SCH ×2 (08:58→20:11)
[2017-04-09] MEDS: ASCORBIC ACID 500 MG TABLET PO SCH (08:58)
[2017-04-09] MEDS: CLOPIDOGREL 75 MG TABLET PO SCH (08:58)
[2017-04-09] MEDS: Multivitamin Tab 1 TAB PO SCH (08:59)
--- NOTE | 2017-04-09 09:31 | DI ---
HISTORY: Pneumonia. COMPARISON: . FINDINGS: A single radiograph of the chest is obtained, and demonstrates stable increased density in the lung bases. The cardiomediastinum is unremarkable. A pacemaker device is noted. There are increased interstitial markings. There is no pneumothorax. IMPRESSION: 1. No significant change from the prior examination.
[2017-04-09] MEDS ORDERED: FUROSEMIDE 10 MG/1 ML - 4 ML IVP ONE (10:43)
--- NOTE | 2017-04-09 13:56 | PDOC(PROG) ---
Date and Time of Service: 04/09/2017, 1350 Interval History: feels better, says he is relieved to have the mask off as it bruised his nose. no chest pain. no nausea or vomiting. states he is tired of peeing so much with lasix. Objective : Data - Labs CBC and BMP: 04/08/17 04:30 04/09/17 03:50 Labs - Last 24 Hours: Laboratory Results 04/09/17 Range/Units 03:50 Sodium 140 (135-145) meq/L Potassium 4.5 (3.8-5.2) meq/L Chloride 106 (98-112) meq/L Carbon Dioxide 26 (23-33) meq/L Anion Gap 8 (5-20) BUN 22 (7-22) mg/dL Creatinine 1.7 H (0.70-1.50) mg/dL Estimated GFR Pbx Mechanic BUN/Creatinine Ratio 12.94 (6-20) Glucose 65 L (78-110) mg/dL Calculated Osmolality 290.0 (267-292) mOsm/kg Calcium 8.9 (8.7-10.7) mg/dL Magnesium 1.9 (1.6-2.4) mg/dL - Imaging X-Ray Status: Image Reviewed by Me (CXR shows pneumonia. I think there is probably interstitial fibrosis and increased fluid.) Objective : Exam - General General Appearance: No Acute Distress, Cooperative Additional General Exam Details: Vital Signs - Last Taken Temperature 98.2 F 04/09/17 11:01 Pulse Rate 69 04/09/17 11:01 Respiratory Rate 19 04/09/17 11:01 Blood Pressure 152/76 04/09/17 11:01 Pulse Ox 90 04/09/17 11:01 - Eye Eye Exam: No Scleral Icterus - Respiratory Respiratory Exam: Breathing Non Labored, Decreased Breath Sounds (overall, improving, slowly) - Cardiovascular Cardiovascular Exam: RRR, No Murmur, No Clicks, No Gallops, No Rubs, No JVD - GI/Abdominal GI/Abdominal Exam: Normal Bowel Sounds, Non Tender, Non Distended, Soft - Extremities Extremities Exam: No Clubbing Present, No Edema Present, No Cyanosis Present - Neurological Neurological Exam: Alert, Oriented x 3, No Facial Droop, Speech Intact / Clear, Moves All Extremities Equally Assessment and Plan - Patient Problems (1) Pneumonia Current Visit: Yes Status: Acute Qualifiers: Pneumonia type: due to unspecified organism Laterality: right Lung location: lower lobe of lung Qualified Description: Pneumonia of right lower lobe due to infectious organism Qualifier Code(s): (J18.1) Lobar pneumonia, unspecified organism (2) Syncopal episodes Current Visit: Yes Status: Acute Qualifiers: Syncope type: unspecified Qualified Description: Syncope, unspecified syncope type Qualifier Code(s): (R55) Syncope and collapse (3) COPD (chronic obstructive pulmonary disease) Current Visit: Yes Status: Chronic Qualifiers: COPD type: COPD with acute lower respiratory infection Qualified Description: Chronic obstructive pulmonary disease with acute lower respiratory infection Qualifier Code(s): (J44.0) Chronic obstructive pulmonary disease with acute lower respiratory infection (4) Hypertension Current Visit: Yes Status: Acute Qualifiers: Hypertension type: essential hypertension Qualified Description: Essential hypertension Qualifier Code(s): (I10) Essential (primary) hypertension (5) Hypothyroidism Current Visit: Yes Status: Chronic Qualifiers: Hypothyroidism type: acquired Qualified Description: Acquired hypothyroidism Qualifier Code(s): (E03.9) Hypothyroidism, unspecified (6) Coronary disease Current Visit: Yes Status: Chronic Qualifiers: Coronary Disease-Associated Artery/Lesion type: [place] artery [place] vs. transplanted heart: [place] heart Associated angina: without angina Qualified Description: Coronary artery disease involving [place] coronary artery of [place] heart without angina pectoris Qualifier Code(s): (I25.10) Atherosclerotic heart disease of [place] coronary artery without angina pectoris (7) Skin lesion of chest wall Current Visit: Yes Status: Acute - Assessment / Plan Additional Assessment/Plan Details: continue rocephin. today is day #4. We may elect to continue longer than 7 days due to poor lung functioning at baseline. MUCH more comfortable on vapotherm vs non rebreather mask. not a CO2 retainer, so I think this is the way to go. He is LESS short of breath today no evidence of pacemaker dysfunction here. skin lesion possibly as outpatient. this is on upper left chest swing bed?? I think backing off anti-HTN meds has been a big help. It could be that the patient has poor barorecepters and is responding overly aggressively to anti- HTN therapy. normal oxygen at home is 6-7 LPM. Patient is still requiring more. It may be that his baseline might not get back there. Might reset to 8 LPM or so.
[2017-04-09] MEDS: cefTRIAXone Inj 2 GM in Sodium Chloride 0.9% 100 ML IV SCH (17:28)
[2017-04-09] MEDS: GABAPENTIN 300 MG CAPSULE PO SCH (20:11)
[2017-04-10] MEDS: LEVOTHYROXINE 75 MCG TABLET PO SCH (04:30)
[2017-04-10 05:40] LABS: BLOOD UREA NITROGEN 28 mg/dL (7-22); BUN/CREATININE RATIO 16.47 (6-20); CALCIUM 8.9 mg/dL (8.7-10.7)
[2017-04-10] MEDS: IPRATROPIUM/ALBUTEROL SULFATE 3 ML NEB NEB PRN ×4 (06:46→18:55)
--- NOTE | 2017-04-10 07:39 | PT.PROG ---
Progress Note Progress Note: S: Pt. states he is doing better today. O: Treatment consisted of therapeutic exercises: B LE 10x each laq, seated marches, reverse hamcurls with red theraband, slr, saq, hip ab/ad, 4 way ankle with red theraband, bicep curls with red theraband and rows with red theraband x 10. Pt. was left in bed with call button within reach and nursing notified. A: Pt. is very willing to participate and very pleasant. He tolerated activities with frequent rest breaks. Progress may be slow due to the diagnosis and other co-morbitities. P: Continue per POC to increase strength and activity tolerance. Lisa France, FUR FINISHER TAILOR
[2017-04-10] MEDS: CLOPIDOGREL 75 MG TABLET PO SCH (08:41)
[2017-04-10] MEDS: Multivitamin Tab 1 TAB PO SCH (08:41)
[2017-04-10] MEDS: ASCORBIC ACID 500 MG TABLET PO SCH (08:41)
[2017-04-10] MEDS: OMEPRAZOLE 20 MG CAPSULE PO SCH ×2 (08:42→20:44)
--- NOTE | 2017-04-10 11:19 | PT.PROG ---
Progress Note Progress Note: S. Patient stated that he is feeling good this morning. O. Patient performed seated exercises in the form of; long arc quads, heel toe raises, marches, hip abduction/adduction, pillow squeezes, clam shells all x 10 bilaterally. Sit to stands x 5 standing hip flexion x10 bilaterally. Patient was left at the edge of bed with alarm and call light. A. Patient tolerated exercises well, he requires frequent rest breaks to recover his O2, After standing exercises patient required approximately 5 minutes to recover his 02 saturation to 90%. Patient would continue to benefit from skilled therapy to increase endurance and strength. P. continue POC.
--- NOTE | 2017-04-10 11:25 | PTI REPORT ---
Thank you for the referral of Yo Levy. He was seen on 04/08/17 for an inpatient evaluation secondary to weakness and deconditioning. SUBJECTIVE: The patient is an 86-year-old male who presents to the hospital secondary to coughing and increased difficulties with breathing. The patient was diagnosed with pneumonia and has spent the last two days in the ICU. He was recently moved to inpatient status this morning prior to our evaluation. The patient states that he is feeling better and has noticed a decrease in his coughing. The patient states that he was hospitalized last month for pneumonia as well and spent four days in the hospital at that time. The patient is currently on 10 liters of oxygen via nasal cannula. The patient states he is usually on 7-8 liters at home. The patient states that he lives here in town with a creative designer. The home that they live in is all one level. He states that up until his recent hospitalization he has been driving and primarily uses a cane when ambulating, but at times for further distances he will use a two wheeled or four wheeled walker. The patient reports a history of falls with his last fall a few months ago where he stated he went to go sit back on the bed and doesn't really remember for two to three hours after that, but he had hit the floor. He states he broke his nose, hit his head, and gave himself a couple of black eyes with the fall. He states he does have a history of falls and it is usually when he runs low on oxygen. PAST MEDICAL HISTORY: Past medical history can be found in the patient's medical record. OBJECTIVE FINDINGS: General observations: The patient is alert and oriented to setting upon PT arrival. The patient was supine in bed with the head of the bed elevated. Pain: The patient reports minimal pain this morning and reports he is feeling better. He states they must have him on the right medication. Bed mobility: The patient was able to move from supine with the head of bed elevated to seated edge of bed position. Balance: Once seated edge of bed the patient demonstrated fair initial seated balance. Once standing, the patient was able to stand with hand hold assist x2 on the walker x2 minutes and demonstrated fair standing balance. Activities of daily living: The patient was able to don a pair of shorts with stand by assist x1 for safety. Transfers: The patient moved from a seated to standing position where he was able to pull up his shorts with stand by assist x1. The patient was able to independently move from a standing to sitting position. Strength: The patient demonstrated 4/5 bilateral lower extremity strength and is able to independently get his legs up onto the bed and down from the bed and is able to perform a straight leg raise. ASSESSMENT: The patient has fair rehab potential due to his past medical history with multiple incidences of pneumonia and difficulties with breathing. Problem List: Decreased endurance/activity tolerance Patient is a HIGH fall risk Generalized weakness Short-Term Goals: To be met by discharge from inpatient: Patient will be able to ambulate x150 feet on appropriate amount of oxygen without his oxygen saturation dropping below 88% and appropriate assistive device in order to ambulate around his house and short distances in the community. Patient will be able to tolerate 30 minutes of physical activity with oxygen saturation monitored. Patient will be instructed on energy conservation techniques in order to maintain oxygen saturation the best that we can so the patient has a better understanding of different times of the day when he may be able to do more fatiguing activities. Long-Term Goals: To be met following discharge from inpatient: Patient may participate in outpatient physical therapy if deemed necessary upon discharge. TREATMENT PLAN: Patient will be seen B.I.D during the week and one time per day over the weekend as an inpatient for energy conservation techniques with activities and monitoring oxygen saturation with general strengthening and balance. INITIAL TREATMENT: Treatment today consisted of the initial evaluation. The patient stated that he did have to use the restroom. The patient did have a bedside urinal. The patient did sit up and was able to perform activity with contact guard assist x1 for safety. The patient was able to independently get himself back into bed and adjust the head of the bed. After treatment, the patient was left in bed with head of bed elevated, his call light within reach, and bed alarm set. [facility]
--- NOTE | 2017-04-10 12:56 | OTI REPORT ---
Thank you for the referral of Yo Levy. He was seen on 04/10/17 for an occupational therapy inpatient evaluation secondary to weakness and deconditioning. SUBJECTIVE: The patient is an 86-year-old male. The patient reports he is currently in the hospital for some pneumonia. He states he was also in the hospital over the last month for the same diagnosis. The patient reports passing out as he was leaving a restaurant and walking to his car. The patient reports that he usually takes 1-2 rest breaks during ambulation; however, when he got to the car he reports passing out. The patient reports that he lives with his significant other in a single story home with one step to the entrance that is approximately 6 inches tall. Within the bathroom he has a tub/shower combo with grab bars. The patient also has a shower chair available if need be. The patient reports sleeping in a standard bed and when walking within the home and out in the community the patient reports he just pulls his oxygen along with him. The patient does have a walker, wheelchair, and a cane available to him. The patient receives assistance with laundry, cooking, cleaning, groceries, and driving from his significant other. At home the patient is on 6-8 liters of oxygen. He reports when out and about in the community he is usually on 8 liters of oxygen and within the home he is usually on 6 liters of oxygen. The patient has a history of recent weight loss. PAST MEDICAL HISTORY: Past medical history can be found in the patient's medical record. OBJECTIVE FINDINGS: General observations: The patient was oriented to person, place, date, and reason for hospitalization. The patient was able to recall medical history in the past including pneumonia and a history of passing out. The patient was on 20 LPM at 75% oxygen while in the room. Range of motion: Upper extremity range of motion is limited. The patient achieved 90 degrees of shoulder flexion and abduction in the right upper extremity and approximately 100 degrees of shoulder flexion and abduction in the left upper extremity. The patient reports soreness in both shoulders with movement. Elbow range of motion is within functional limits bilaterally. Wrist and hand range of motion is within functional limits bilaterally. Transfers: The patient requires stand by assistance when performing transfers for safety and does require cueing to ensure his oxygen is in the right place and to take rest breaks. Strength: Manual muscle testing was performed. The patient demonstrates strength of 3/5 for bilateral upper extremities including gross grasp. The patient presents with more weakness on the left side for gross grasp. Activities of daily living: The patient performed dressing tasks to include donning socks with the leg crossing technique while sitting edge of bed. The patient demonstrates ability to sit edge of bed unsupported x10 minutes. Balance: The patient demonstrates good static sitting balance and fair static standing balance. ASSESSMENT: Problem List: Limited activity tolerance secondary to diagnosis of COPD and shortness of breath Upper extremity weakness Decreased ability to perform activities of daily living Minimal cognitive impairments Short-Term Goals: To be met by discharge from inpatient: Patient will increase activity tolerance to perform standing ADL tasks while at the sink x3 minutes. Patient will increase upper extremity strength to 4/5. Patient will complete entire ADL routine to include upper extremity/lower extremity dressing, toileting, and grooming tasks without becoming short of breath and taking rest breaks as needed. Patient will demonstrate understanding of energy conservation techniques to use upon discharge. Long-Term Goals: To be met following discharge from inpatient: Patient will return home with knowledge of energy conservation techniques and perform all ADLs safely. TREATMENT PLAN: Patient will be seen B.I.D during the week and one time per day over the weekend as an inpatient to address the above goals and objectives. INITIAL TREATMENT: Treatment today consisted of the initial evaluation followed by seated upper extremity strengthening activities at edge of bed to include shoulder flexion x10, shoulder abduction x30 seconds, scapular retraction x20, and shoulder shrugs x20. The patient does require a short rest break between each activity and reported being tired following therapy session. ROJAS
--- NOTE | 2017-04-10 14:10 | OT.PROG ---
Progress Note Progress Note: S: Pt reports he is feeling well this afternoon. Minimal C/O pain with bilateral UE use. O: Pt was seen from 13:20 to 13:45 for skilled occupational therapy with a focus on strengthening and increasing activity tolerance. Pt completed the following therapeutic exercises while sitting EOB with red TB: horizontal abduction X 10, internal rotation X 10, external rotation X 10, triceps X 10, biceps 2 X 10, should shrugs X 20 and shoulder flexion with left only X 10. Pt also completed isometric UE exercises to include shoulder flexion to 90 degrees 2 X 30 sec. and shoulder abduction to 90 degrees 2 X 30 sec. Lastly, pt completed sit to stand from EOB and stood X 30 sec. with SBA for safety before requiring rest break. A: Pt tolerated therapeutic exercise well at beginning of therapy session, however fatigued quickly with UE exercise and when performing functional mobility. Pt continues to benefit from skilled therapy to increase activity tolerance, improve strength, and improve ADL functioning. P: Continue POC. CHRISTIANO Higuera/Aleksander
--- NOTE | 2017-04-10 14:18 | PT.PROG ---
Progress Note Progress Note: S. Patient stated that he is feeling good this afternoon. O. Patient performed seated exercises in the form of; long arc quads, heel toe raises, marches, pillow squeezes, clam shells, resisted knee flexion all x 15. Sit to stands x 5, standing balance 2x30 seconds, balance grid x1. Patient was left at the edge of bed with alarm and call light. A. Patient tolerated exercise well, however continues to be weak and require frequent rest breaks to recover breathing and from fatigue. Patient would continue to benefit from skilled therapy to increase strength and endurance. P. Continue POC.
--- NOTE | 2017-04-10 14:24 | PDOC(PROG) ---
Interval History: Patient feels better no chest pain nausea or vomiting. He admits to not wearing oxygen as he should and at home this is ortiz probably passing out at times Objective : Data - Labs CBC and BMP: 04/08/17 04:30 04/10/17 04:20 Labs - Last 24 Hours: Laboratory Results 04/10/17 Range/Units 04:20 Sodium 137 (135-145) meq/L Potassium 4.2 (3.8-5.2) meq/L Chloride 102 (98-112) meq/L Carbon Dioxide 27 (23-33) meq/L Anion Gap 8 (5-20) BUN 28 H (7-22) mg/dL Creatinine 1.7 H (0.70-1.50) mg/dL Estimated GFR Spanish Speaking Babysitter BUN/Creatinine Ratio 16.47 (6-20) Glucose 78 (78-110) mg/dL Calculated Osmolality 288.0 (267-292) mOsm/kg Calcium 8.9 (8.7-10.7) mg/dL NT-Pro-B Natriuret Pep 9540 H (0-450) PG/ML Objective : Exam - General General Appearance: Cooperative - Respiratory Respiratory Exam: Decreased Breath Sounds - Cardiovascular Cardiovascular Exam: RRR, No Murmur, No Clicks - GI/Abdominal GI/Abdominal Exam: Non Tender, Non Distended, Soft - Extremities Extremities Exam: No Clubbing Present, No Edema Present, No Cyanosis Present - Neurological Neurological Exam: Alert, Oriented x 3 Assessment and Plan - Patient Problems (1) CHF (congestive heart failure) Current Visit: Yes Status: Acute (2) Hypertension Current Visit: Yes Status: Acute Qualifiers: Hypertension type: essential hypertension Qualified Description: Essential hypertension Qualifier Code(s): (I10) Essential (primary) hypertension (3) Pneumonia Current Visit: Yes Status: Acute Qualifiers: Pneumonia type: due to unspecified organism Laterality: right Lung location: lower lobe of lung Qualified Description: Pneumonia of right lower lobe due to infectious organism Qualifier Code(s): (J18.1) Lobar pneumonia, unspecified organism (4) History of coronary artery disease Current Visit: No Status: Chronic (5) Chronic renal failure Current Visit: Yes Status: Acute - Assessment / Plan Additional Assessment/Plan Details: #1 COPD exacerbation/pneumonia continue IV antibiotics I believe patient has cor pulmonale with right-sided heart failure with elevated BNP I will order CAT scan and an echo to evaluate pulmonary hypertension and continue current treatment
[2017-04-10] MEDS: NORMAL SALINE 10 ML SYRINGE FLUSH IVP PRN (17:50)
[2017-04-10] MEDS: cefTRIAXone Inj 2 GM in Sodium Chloride 0.9% 100 ML IV SCH (17:50)
[2017-04-10] MEDS: GABAPENTIN 300 MG CAPSULE PO SCH (20:44)
[2017-04-11] MEDS: LEVOTHYROXINE 75 MCG TABLET PO SCH (04:32)
[2017-04-11 06:05] LABS: BLOOD UREA NITROGEN 28 mg/dL (7-22); BUN/CREATININE RATIO 15.55 (6-20); SERUM ALBUMIN 3.3 g/dL (3.5-4.8)
--- NOTE | 2017-04-11 06:31 | DI ---
CT CHEST W/O CONTRAST,04/10/2017 11:11 AM: Clinical History: Hypoxia Previous Exam: February 28, 2017 December 31, 2014 Findings: Multiple helically acquired CT images are obtained through the chest without contrast. Diffuse COPD is noted. Peripheral vascular calcifications are seen. There is a pacemaker noted in good position. The upper abdomen is unremarkable. A few calcified granulomas are seen within the spleen. There is a stable spiculated nodule within the right middle lobe which remain stable dating back to A pril 2014. There is no infiltrate nor effusion. Diffuse degenerative changes of the spine are noted. Diffuse degenerative changes of the spine are seen. Impression: 1. Stable diffuse COPD and stable right middle lobe nodule without acute findings.
[2017-04-11] MEDS: IPRATROPIUM/ALBUTEROL SULFATE 3 ML NEB NEB PRN ×2 (06:45→11:02)
[2017-04-11 07:01] LABS: HEMATOCRIT 41.1 % (42.0-52.0); HEMOGLOBIN 13.6 g/dL (14.0-18.0); MEAN CORPUSCULAR HEMOGLOBIN 30.1 PG (27-31); MEAN CORPUSCULAR HGB CONC 33.1 g/dL (33-37); MEAN CORPUSCULAR VOLUME 90.9 FL (80-90); MEAN PLATELET VOLUME 10.2 FL (7.4-12.2); NEUTROPHILS % (AUTO) 61.1 % (50-80); RED BLOOD COUNT 4.52 10^6/uL (4.70-6.10)
[2017-04-11 07:02] LABS: BASOPHILS # (AUTO) 0.03 10*3/UL; BASOPHILS % (AUTO) 0.6 % (0-1); EOSINOPHILS # (AUTO) 0.21 10*3/UL; EOSINOPHILS % (AUTO) 3.9 % (0-8); MONOCYTES # (AUTO) 0.56 10*3/UL (0.3-0.8); MONOCYTES % (AUTO) 10.3 % (5-15); NEUTROPHILS # (AUTO) 3.33 10*3/UL
[2017-04-11 07:03] LABS: PLATELET MORPHOLOGY COMMENT NORMAL MORPHOLOGY (NORM); RBC MORPHOLOGY COMMENT SEE COMMENTS (NORM); WBC MORPHOLOGY COMMENT NORMAL MORPHOLOGY (NORM)
[2017-04-11 08:16] LABS: ANTISTREP-O TITER 24 IU/mL (0 - 530)
[2017-04-11] MEDS ORDERED: predniSONE Tab 20 MG TAB PO SCH (09:00)
--- NOTE | 2017-04-11 09:19 | PT.PROG ---
Progress Note Progress Note: S. Patient stated that he is feeling good this morning. O. Patient ambulated 175 feet to the therapy gym where he performed supine exercises in the form of; heel slides, quad sets, ankle pumps, hip abduction/ adduction, seated marches, long arc quads, hamstring curls, clamshells (green), all x 10 bilaterally. Patient ambulated 175 feet back to his room where he was left on the edge of bed with alarm and call light. A. Patient tolerated exercises well, he continues to struggle with his breathing. On 10L patients o2 sats dropped to 79% and required approximately 5 minutes to return to 90%. Patient continues to be weak however is very willing to do therapy. Patient would continue to benefit from skilled therapy to increase strength and endurance. P. continue POC.
[2017-04-11] MEDS: Multivitamin Tab 1 TAB PO SCH (10:32)
[2017-04-11] MEDS: OMEPRAZOLE 20 MG CAPSULE PO SCH (10:33)
[2017-04-11] MEDS: CLOPIDOGREL 75 MG TABLET PO SCH (10:33)
[2017-04-11] MEDS: ASCORBIC ACID 500 MG TABLET PO SCH (10:33)
--- NOTE | 2017-04-11 10:34 | PDOC(PROG) ---
Interval History: Patient is feeling much better he said he lives with his girlfriend and has a concentrator and oxygen at home I reiterated that he needed needs to wear all the time and this is why he might pass out this was discussed with his son last time Objective : Data - Labs CBC and BMP: 04/11/17 04:25 04/11/17 04:25 Labs - Last 24 Hours: Laboratory Results 04/11/17 Range/Units 04:25 WBC 5.44 (4.8-10.8) 10^3/uL RBC 4.52 L (4.70-6.10) 10^6/uL Hgb 13.6 L (14.0-18.0) g/dL Hct 41.1 L (42.0-52.0) % MCV 90.9 H (80-90) FL MCH 30.1 (27-31) PG MCHC 33.1 (33-37) g/dL RDW Std Deviation 72.0 H (39-50) fL RDW Coeff of Kevin 21.8 H (11.5-14.5) % Plt Count 121 L (140-350) 10*3/uL MPV 10.2 (7.4-12.2) FL Immature Gran % (Auto) 0.2 (0-5) % Neut % (Auto) 61.1 (50-80) % Lymph % (Auto) 23.9 (10-50) % [place] % (Auto) 10.3 (5-15) % Eos % (Auto) 3.9 (0-8) % Baso % (Auto) 0.6 (0-1) % Immature Gran # (Auto) 0.01 10*3/UL Neut # (Auto) 3.33 10*3/UL Lymph # (Auto) 1.30 10*3/uL [place] # (Auto) 0.56 (0.3-0.8) 10*3/UL Eos # (Auto) 0.21 10*3/UL Baso # (Auto) 0.03 10*3/UL WBC Morphology Comment Normal morphology (NORM) Plt Morphology Comment Normal morphology (NORM) RBC Morph Comment See comments (NORM) Sodium 139 (135-145) meq/L Potassium 4.4 (3.8-5.2) meq/L Chloride 102 (98-112) meq/L Carbon Dioxide 27 (23-33) meq/L Anion Gap 10 (5-20) BUN 28 H (7-22) mg/dL Creatinine 1.8 H (0.70-1.50) mg/dL Estimated GFR Food Consultant BUN/Creatinine Ratio 15.55 (6-20) Glucose 76 L (78-110) mg/dL Calculated Osmolality 292.0 (267-292) mOsm/kg Calcium 9.0 (8.7-10.7) mg/dL Total Bilirubin 0.6 (0.3-1.2) mg/dL AST 35 (21-57) IU/L ALT 23 (21-72) IU/L Alkaline Phosphatase 51 (38-126) IU/L Total Protein 5.9 L (6.1-8.0) g/dL Albumin 3.3 L (3.5-4.8) g/dL Globulin 2.6 (2.50-4.10) g/dL Albumin/Globulin Ratio 1.20 L (1.3-2.0) mg/g Objective : Exam - General General Appearance: Cooperative - Neck Neck Exam: Normal Inspection - Respiratory Respiratory Exam: Clear to Auscultation - Bilaterally, Decreased Breath Sounds - Cardiovascular Cardiovascular Exam: RRR, No Murmur, No Clicks - GI/Abdominal GI/Abdominal Exam: Non Distended, Soft - Extremities Extremities Exam: No Clubbing Present, No Edema Present Assessment and Plan - Patient Problems (1) CHF (congestive heart failure) Current Visit: Yes Status: Acute Comment: Most likely cor pulmonale and will start Lasix 20 mg by mouth twice a day patient does have renal failure as well discuss the echo with Dr. Hernandez in [place] he does have right-sided heart failure is ventricle is dilated he recommends no interventions at this time (2) Hypertension Current Visit: Yes Status: Acute Comment: Continue current meds Qualifiers: Hypertension type: essential hypertension Qualified Description: Essential hypertension Qualifier Code(s): (I10) Essential (primary) hypertension (3) Pneumonia Current Visit: Yes Status: Acute Comment: No infiltrate on the CT scan most likely all COPD exacerbation and pulmonary hypertension Qualifiers: Pneumonia type: due to unspecified organism Laterality: right Lung location: lower lobe of lung Qualified Description: Pneumonia of right lower lobe due to infectious organism Qualifier Code(s): (J18.1) Lobar pneumonia, unspecified organism (4) History of coronary artery disease Current Visit: No Status: Chronic Comment: Stable (5) Chronic renal failure Current Visit: Yes Status: Acute Comment: This is chronic in nature
[2017-04-11 11:50] VITALS: RESP 20; TEMP 98.1
--- NOTE | 2017-04-11 13:52 | DCSUMMARY ---
Hospitalization Summary Hospital Course: Final Discharge Diagnosis: Current Visit Problems Problem Status Priority Diagnosed Code CHF (congestive heart failure) Acute I50.9 Chronic renal failure Acute N18.9 Hypertension Acute I10 Pleural effusion due to CHF (congestive heart failure) Acute I50.9 Pneumonia Acute J18.9 Pneumonia due to infectious agent Acute J18.9 Respiratory insufficiency Acute R06.89 Sepsis associated hypotension Acute A41.9 Skin lesion of chest wall Acute L98.9 Syncopal episodes Acute R55 COPD (chronic obstructive pulmonary disease) Chronic J44.9 Coronary disease Chronic I25.10 Hypothyroidism Chronic E03.9 Sepsis Resolved A41.9 Diagnostic Data, Laboratory Data, and Procedures of Signifigance: Laboratory Results 04/06/17 04/06/17 04/06/17 Range/Units 14:52 14:59 15:00 WBC 5.14 (4.8-10.8) 10^3/uL RBC 4.82 (4.70-6.10) 10^6/uL Hgb 14.3 (14.0-18.0) g/dL Hct 44.5 (42.0-52.0) % MCV 92.3 H (80-90) FL MCH 29.7 (27-31) PG MCHC 32.1 L (33-37) g/dL RDW Std Deviation 80 H (39-50) fL RDW Coeff of Kevin 24.1 H (11.5-14.5) % Plt Count 174 (140-350) 10*3/uL MPV 10.0 (7.4-12.2) FL Immature Gran % (Auto) 0.4 (0-5) % Neut % (Auto) 63.8 (50-80) % Lymph % (Auto) 22.8 (10-50) % [place] % (Auto) 9.5 (5-15) % Eos % (Auto) 2.7 (0-8) % Baso % (Auto) 0.8 (0-1) % Immature Gran # (Auto) 0.02 10*3/UL Neut # (Auto) 3.28 10*3/UL Lymph # (Auto) 1.17 10*3/uL [place] # (Auto) 0.49 (0.3-0.8) 10*3/UL Eos # (Auto) 0.14 10*3/UL Baso # (Auto) 0.04 10*3/UL WBC Morphology Comment Normal morphology (NORM) Plt Morphology Comment Normal morphology (NORM) RBC Morph Comment See comments (NORM) PT 11.4 (9.7-11.4) secs INR 1.07 (0.00-5.90) N/A D-Dimer 1.51 H (0.00-0.59) mg/L ABG pH 7.33 L (7.35-7.45) ABG pCO2 46 H (34-38) MMHG ABG pO2 34 L (65-75) MMHG ABG HCO3 24 (22-26) ABG Total CO2 25 (23-27) MMOL/L ABG O2 Saturation 61 L (90-100) % ABG Base Excess -2 (-2-2) MMOL/L Billy Test Yes FiO2 10l/m mask Sodium 140 (135-145) meq/L Potassium 4.8 (3.8-5.2) meq/L Chloride 104 (98-112) meq/L Carbon Dioxide 25 (23-33) meq/L Anion Gap 11 (5-20) BUN 25 H (7-22) mg/dL Creatinine 2.2 H (0.70-1.50) mg/dL Estimated GFR Assistant Loan [employer]or BUN/Creatinine Ratio 11.36 (6-20) Glucose 120 H (78-110) mg/dL Calculated Osmolality 294.0 H (267-292) mOsm/kg Lactic Acid 2.3 H (0.70-2.10) MMOL/L Calcium 9.0 (8.7-10.7) mg/dL Magnesium (1.6-2.4) mg/dL Total Bilirubin 0.8 (0.3-1.2) mg/dL AST 38 (21-57) IU/L ALT 35 (21-72) IU/L Alkaline Phosphatase 61 (38-126) IU/L Troponin I < 0.020 (< 0.040) ng/mL C-Reactive Protein 1.1 H (0.0-0.9) mg/dL NT-Pro-B Natriuret Pep 53692 H (0-450) PG/ML Total Protein 6.5 (6.1-8.0) g/dL Albumin 4.1 (3.5-4.8) g/dL Globulin 2.4 L (2.50-4.10) g/dL Albumin/Globulin Ratio 1.70 (1.3-2.0) mg/g Total Cortisol (()) mcg/dL Ur L.pneumophila Ag (Negative) Anti-Streptolysin Titr (0 - 530) IU/mL Anti-DNase B (Strep) (0 - 300) U/mL 04/06/17 04/06/17 04/06/17 Range/Units 17:40 23:10 23:32 WBC (4.8-10.8) 10^3/uL RBC (4.70-6.10) 10^6/uL Hgb (14.0-18.0) g/dL Hct (42.0-52.0) % MCV (80-90) FL MCH (27-31) PG MCHC (33-37) g/dL RDW Std Deviation (39-50) fL RDW Coeff of Kevin (11.5-14.5) % Plt Count (140-350) 10*3/uL MPV (7.4-12.2) FL Immature Gran % (Auto) (0-5) % Neut % (Auto) (50-80) % Lymph % (Auto) (10-50) % [place] % (Auto) (5-15) % Eos % (Auto) (0-8) % Baso % (Auto) (0-1) % Immature Gran # (Auto) 10*3/UL Neut # (Auto) 10*3/UL Lymph # (Auto) 10*3/uL [place] # (Auto) (0.3-0.8) 10*3/UL Eos # (Auto) 10*3/UL Baso # (Auto) 10*3/UL WBC Morphology Comment (NORM) Plt Morphology Comment (NORM) RBC Morph Comment (NORM) PT (9.7-11.4) secs INR (0.00-5.90) N/A D-Dimer (0.00-0.59) mg/L ABG pH (7.35-7.45) ABG pCO2 (34-38) MMHG ABG pO2 (65-75) MMHG ABG HCO3 (22-26) ABG Total CO2 (23-27) MMOL/L ABG O2 Saturation (90-100) % ABG Base Excess (-2-2) MMOL/L Billy Test FiO2 Sodium (135-145) meq/L Potassium (3.8-5.2) meq/L Chloride (98-112) meq/L Carbon Dioxide (23-33) meq/L Anion Gap (5-20) BUN (7-22) mg/dL Creatinine (0.70-1.50) mg/dL Estimated GFR BUN/Creatinine Ratio (6-20) Glucose (78-110) mg/dL Calculated Osmolality (267-292) mOsm/kg Lactic Acid 0.6 L (0.70-2.10) MMOL/L Calcium (8.7-10.7) mg/dL Magnesium 2.0 (1.6-2.4) mg/dL Total Bilirubin (0.3-1.2) mg/dL AST (21-57) IU/L ALT (21-72) IU/L Alkaline Phosphatase (38-126) IU/L Troponin I (< 0.040) ng/mL C-Reactive Protein (0.0-0.9) mg/dL NT-Pro-B Natriuret Pep (0-450) PG/ML Total Protein (6.1-8.0) g/dL Albumin (3.5-4.8) g/dL Globulin (2.50-4.10) g/dL Albumin/Globulin Ratio (1.3-2.0) mg/g Total Cortisol (()) mcg/dL Ur L.pneumophila Ag Negative (Negative) Anti-Streptolysin Titr 24 (0 - 530) IU/mL Anti-DNase B (Strep) <79 (0 - 300) U/mL 04/07/17 04/08/17 04/09/17 Range/Units 05:46 04:30 03:50 WBC 4.40 L 4.50 L (4.8-10.8) 10^3/uL RBC 4.24 L 4.19 L (4.70-6.10) 10^6/uL Hgb 12.5 L 12.4 L (14.0-18.0) g/dL Hct 39.2 L 39.0 L (42.0-52.0) % MCV 92.5 H 93.1 H (80-90) FL MCH 29.5 29.6 (27-31) PG MCHC 31.9 L 31.8 L (33-37) g/dL RDW Std Deviation 78.8 H 77.7 H (39-50) fL RDW Coeff of Kevin 23.6 H 23.0 H (11.5-14.5) % Plt Count 134 L 137 L (140-350) 10*3/uL MPV 10.2 10.9 (7.4-12.2) FL Immature Gran % (Auto) 0.7 0.2 (0-5) % Neut % (Auto) 65.7 63.1 (50-80) % Lymph % (Auto) 20.0 20.7 (10-50) % [place] % (Auto) 11.1 12.0 (5-15) % Eos % (Auto) 2.3 3.6 (0-8) % Baso % (Auto) 0.2 0.4 (0-1) % Immature Gran # (Auto) 0.03 0.01 10*3/UL Neut # (Auto) 2.89 2.84 10*3/UL Lymph # (Auto) 0.88 0.93 10*3/uL [place] # (Auto) 0.49 0.54 (0.3-0.8) 10*3/UL Eos # (Auto) 0.10 0.16 10*3/UL Baso # (Auto) 0.01 0.02 10*3/UL WBC Morphology Comment Normal morphology Normal morphology (NORM) Plt Morphology Comment Normal morphology Normal morphology (NORM) RBC Morph Comment See comments See comments (NORM) PT (9.7-11.4) secs INR (0.00-5.90) N/A D-Dimer (0.00-0.59) mg/L ABG pH (7.35-7.45) ABG pCO2 (34-38) MMHG ABG pO2 (65-75) MMHG ABG HCO3 (22-26) ABG Total CO2 (23-27) MMOL/L ABG O2 Saturation (90-100) % ABG Base Excess (-2-2) MMOL/L Billy Test FiO2 Sodium 140 140 140 (135-145) meq/L Potassium 5.2 4.9 4.5 (3.8-5.2) meq/L Chloride 112 112 106 (98-112) meq/L Carbon Dioxide 24 23 26 (23-33) meq/L Anion Gap 4 L 5 8 (5-20) BUN 22 20 22 (7-22) mg/dL Creatinine 1.8 H 1.6 H 1.7 H (0.70-1.50) mg/dL Estimated GFR Assistant Loan [employer] Assistant Loan Processor Assistant Loan [employer]or BUN/Creatinine Ratio 12.22 12.50 12.94 (6-20) Glucose 79 70 L 65 L (78-110) mg/dL Calculated Osmolality 291.0 290.0 290.0 (267-292) mOsm/kg Lactic Acid 0.7 (0.70-2.10) MMOL/L Calcium 7.8 L 8.3 L 8.9 (8.7-10.7) mg/dL Magnesium 1.9 (1.6-2.4) mg/dL Total Bilirubin 0.6 (0.3-1.2) mg/dL AST 25 (21-57) IU/L ALT 28 (21-72) IU/L Alkaline Phosphatase 50 (38-126) IU/L Troponin I (< 0.040) ng/mL C-Reactive Protein (0.0-0.9) mg/dL NT-Pro-B Natriuret Pep 07214 H (0-450) PG/ML Total Protein 5.3 L (6.1-8.0) g/dL Albumin 3.0 L (3.5-4.8) g/dL Globulin 2.3 L (2.50-4.10) g/dL Albumin/Globulin Ratio 1.30 (1.3-2.0) mg/g Total Cortisol (()) mcg/dL Ur L.pneumophila Ag (Negative) Anti-Streptolysin Titr (0 - 530) IU/mL Anti-DNase B (Strep) (0 - 300) U/mL 04/10/17 04/11/17 Range/Units 04:20 04:25 WBC 5.44 (4.8-10.8) 10^3/uL RBC 4.52 L (4.70-6.10) 10^6/uL Hgb 13.6 L (14.0-18.0) g/dL Hct 41.1 L (42.0-52.0) % MCV 90.9 H (80-90) FL MCH 30.1 (27-31) PG MCHC 33.1 (33-37) g/dL RDW Std Deviation 72.0 H (39-50) fL RDW Coeff of Kevin 21.8 H (11.5-14.5) % Plt Count 121 L (140-350) 10*3/uL MPV 10.2 (7.4-12.2) FL Immature Gran % (Auto) 0.2 (0-5) % Neut % (Auto) 61.1 (50-80) % Lymph % (Auto) 23.9 (10-50) % [place] % (Auto) 10.3 (5-15) % Eos % (Auto) 3.9 (0-8) % Baso % (Auto) 0.6 (0-1) % Immature Gran # (Auto) 0.01 10*3/UL Neut # (Auto) 3.33 10*3/UL Lymph # (Auto) 1.30 10*3/uL [place] # (Auto) 0.56 (0.3-0.8) 10*3/UL Eos # (Auto) 0.21 10*3/UL Baso # (Auto) 0.03 10*3/UL WBC Morphology Comment Normal morphology (NORM) Plt Morphology Comment Normal morphology (NORM) RBC Morph Comment See comments (NORM) PT (9.7-11.4) secs INR (0.00-5.90) N/A D-Dimer (0.00-0.59) mg/L ABG pH (7.35-7.45) ABG pCO2 (34-38) MMHG ABG pO2 (65-75) MMHG ABG HCO3 (22-26) ABG Total CO2 (23-27) MMOL/L ABG O2 Saturation (90-100) % ABG Base Excess (-2-2) MMOL/L Billy Test FiO2 Sodium 137 139 (135-145) meq/L Potassium 4.2 4.4 (3.8-5.2) meq/L Chloride 102 102 (98-112) meq/L Carbon Dioxide 27 27 (23-33) meq/L Anion Gap 8 10 (5-20) BUN 28 H 28 H (7-22) mg/dL Creatinine 1.7 H 1.8 H (0.70-1.50) mg/dL Estimated GFR Assistant Loan [employer]or Assistant Loan [employer]or BUN/Creatinine Ratio 16.47 15.55 (6-20) Glucose 78 76 L (78-110) mg/dL Calculated Osmolality 288.0 292.0 (267-292) mOsm/kg Lactic Acid (0.70-2.10) MMOL/L Calcium 8.9 9.0 (8.7-10.7) mg/dL Magnesium (1.6-2.4) mg/dL Total Bilirubin 0.6 (0.3-1.2) mg/dL AST 35 (21-57) IU/L ALT 23 (21-72) IU/L Alkaline Phosphatase 51 (38-126) IU/L Troponin I (< 0.040) ng/mL C-Reactive Protein (0.0-0.9) mg/dL NT-Pro-B Natriuret Pep 9540 H (0-450) PG/ML Total Protein 5.9 L (6.1-8.0) g/dL Albumin 3.3 L (3.5-4.8) g/dL Globulin 2.6 (2.50-4.10) g/dL Albumin/Globulin Ratio 1.20 L (1.3-2.0) mg/g Total Cortisol 7.5 (()) mcg/dL Ur L.pneumophila Ag (Negative) Anti-Streptolysin Titr (0 - 530) IU/mL Anti-DNase B (Strep) (0 - 300) U/mL History and Physical pertinent to Admission: Course of Hospitalization: This very nice 86-year-old gentleman with multiple medical issues significant for severe emphysema, COPD, chronic renal failure, coronary artery disease with multiple stents, hypertension, GERD, peripheral neuropathy and high cholesterol comes to the hospital because of increased shortness of breath was treated for pneumonia but CAT scan revealed severe emphysema with scarring patient did well throughout his hospital stay underwent antibiotic therapy plus steroids and inhalers PTOT also worked with the patient I did have a conversation with the I did call her in for a meeting I've explained that the patient has end- stage emphysema he needs around 9-10 L her 8 L of oxygen at day he would pass out if he does not wear it. She understands this from our last conversation last admission where she agreed to take care of him as she agreed now to take care of him the patient is not interested in a long term or do any other type of activity or physical therapy. He said that he will go home with oxygen he would wear it with follow-up with Dr. Pan and the rest will be up to god. He is very happy with the care and how better he is feeling. I discussed this with nursing as well Caitlin and she is also in agreement On the date of discharge, the patient was examined: Gen.: No acute distress, alert, nontoxic Heart: Regular rate and rhythm, no murmurs, clicks, gallops, or rubs Lungs: Clear to auscultation bilaterally, breathing is nonlabored Abdomen/GI: Normal tones on auscultation, soft, nontender, nondistended Musculoskeletal/extremities: No clubbing, cyanosis, or edema Vitals reviewed and are listed below Vital Signs (24 hrs) Temp Pulse Resp BP BP Pulse Ox 04/11/17 11:49 98.1 F 78 20 128/85 92 04/11/17 07:23 97.2 F 72 18 115/59 96 04/11/17 05:39 95 04/11/17 04:35 98.9 F 90 18 109/76 92 04/11/17 00:15 98.5 F 81 101/66 92 04/10/17 21:00 98.6 F 74 18 148/87 90 04/10/17 19:00 74 04/10/17 18:58 90 04/10/17 17:00 97.5 F 74 20 128/69 90 Assessment and Plan: 1. As per discharge assessments above 2. Disposition: Home 3. Condition on discharge, stable and improved. 4. Diet: regular diet 5. Activities: resume normal activities 6. Follow-Up: 1. PCP Dr. Pan 3-5 days 2. 7. Medications at the Time of Discharge: Home Medications Medication Instructions Recorded Confirmed Type Multivitamin [Multivitamins] 1 each PO DAILY 08/01/11 04/06/17 History Clopidogrel Bisulfate [Plavix] 1 tab PO DAILY #90 tab 05/03/16 04/06/17 Clinic Levothyroxine Sodium 1 tab ORAL QAM #90 tab 11/21/16 04/06/17 Clinic Omeprazole 1 cap ORAL BID #180 capsule 11/21/16 04/06/17 Clinic Simvastatin 1 tab ORAL QHS #90 tab 11/21/16 04/06/17 Clinic Furosemide 1 tab PO DAILY #90 tab 12/27/16 04/06/17 Clinic Hydralazine HCl 1 tab PO TID #270 tab 12/27/16 04/06/17 Clinic Flutica/Salmet 250/50 Inhaler 1 puff INH RTBID #30 inhaler 03/02/17 04/06/17 Rx [Advair Diskus 250/50 Inhaler] Tiotropium Inhalation Cap 18 mcg INH RTDAILY #1 inhaler 03/02/17 04/06/17 Rx [Spiriva Inhalation Cap] Amlodipine Besylate 1 tab PO QHS #90 tab 03/03/17 04/06/17 Clinic Gabapentin 1 cap PO QHS #90 cap 03/20/17 04/06/17 Clinic predniSONE Tab [Deltasone Tab] 40 mg PO DAILY #10 tab 04/11/17 Rx 8. Time, care, counseling and coordination of care for this discharge is greater than 30 minutes. Exam - Vitals Vital Signs: Vital Signs Temperature 98.1 F Temperature Source Temporal Artery Scan Pulse Rate [Telemetry] 73 Pulse Rate [Apical] 68 Pulse Rate [Pulse Oximeter] 78 Pulse Rate 70 Respiratory Rate 20 Blood Pressure [Right Arm] 109/76 Blood Pressure [Left Arm] 128/85 Blood Pressure 135/69 Pulse Ox 92 Oxygen Flow Rate 10 Oxygen Delivery Method Nasal Cannula Height 5 ft 8 in Weight 79.288 kg Patient Problems - Patient Problem List (1) CHF (congestive heart failure) Current Visit: Yes Status: Acute (2) Hypertension Current Visit: Yes Status: Acute Qualifiers: Hypertension type: essential hypertension Qualified Description: Essential hypertension Qualifier Code(s): (I10) Essential (primary) hypertension (3) Pneumonia Current Visit: Yes Status: Acute Qualifiers: Pneumonia type: due to unspecified organism Laterality: right Lung location: lower lobe of lung Qualified Description: Pneumonia of right lower lobe due to infectious organism Qualifier Code(s): (J18.1) Lobar pneumonia, unspecified organism (4) History of coronary artery disease Current Visit: No Status: Chronic (5) Chronic renal failure Current Visit: Yes Status: Acute
--- NOTE | 2017-04-12 15:13 | PT PM DAY ---
Diagnosis : Weakness/Deconditioning PM - Physical Therapy S: The patient stated he is going home and he feels he is ready to go home. The patient stated he did not want to do a lot in therapy this afternoon , but he did agree to participate in our session. O: The patient performed sit to stands x10, standing balance x3 minutes, seated marches, long arc quads, pillow squeezes, and clamshells x10 bilaterally. The patient was left sitting edge of bed with nursing present. A: The patient tolerated exercise well; however, he continues to struggle with his breathing. The patient would continue to benefit from outpatient therapy. P: Patient will be discharged to home. MTDD
--- NOTE | 2017-04-13 15:49 | OT AM DAY ---
Diagnosis : Weakness/Deconditioning AM - Occupational Therapy S: The patient reports he is more than likely going to be discharged. O: Today we worked on dressing skills. The patient was able to dress self independently while sitting edge of bed. He demonstrated good balance. He was able to don his underwear, pants, and shoes independently after set up. His oxygen saturation stayed between 80-92%. The patient and his were educated to continue with the energy conservation techniques that were discussed prior. A: The patient is doing well with physical abilities but he is still struggling with energy conservation and breathing skills. P: Patient will be discharged to home. ROJAS
== END 2017-04-11 14:55 | disposition home or self-care (01) | DRG 291 ==
LOC: ER 14:25 → MED/SURG 16:25 → ICU 16:53 → MED/SURG 04-07 17:43
PROVIDERS: ADMIT Family Medicine; ATTEND Family Medicine
DX: I50.9 Heart failure, unspecified (principal); J18.9 Pneumonia, unspecified organism; J15.8 Pneumonia due to other specified bacteria; I95.9 Hypotension, unspecified; A41.9 Sepsis, unspecified organism; J90 Pleural effusion, not elsewhere classified; I10 Essential (primary) hypertension; R06.89 Other abnormalities of breathing; I95.89 Other hypotension; L98.9 Disorder of the skin and subcutaneous tissue, unspecified; R55 Syncope and collapse; J44.9 Chronic obstructive pulmonary disease, unspecified; I25.10 Atherosclerotic heart disease of native coronary artery without angina pectoris; E03.9 Hypothyroidism, unspecified; N18.9 Chronic kidney disease, unspecified
CPT/HCPCS: 36415; 36600; 71020; 80053; 82803; 83605; 83880; 84484; 85025; 85379; 85610; 86140; 87040; 93005; 93010; 94640; 99285 ×2; J0696; J7620; 71010; 71250; 80048; 82533; 83735; 86060; 86215; 87899; 90670; 93306; 94660; 94761; 97110; 97161; 97165; 97530; J1650; J1940; J7030; J7050; J7512

== ENCOUNTER → 2017-04-19 | Outpatient (CLI) | payer OTHER, MEDICARE ==
[2017-04-19 08:28] LABS: BASOPHILS # (AUTO) 0.13 10*3/UL; BASOPHILS % (AUTO) 1.4 % (0-1); EOSINOPHILS # (AUTO) 0.42 10*3/UL; EOSINOPHILS % (AUTO) 4.4 % (0-8); HEMATOCRIT 45.5 % (42.0-52.0); HEMOGLOBIN 15.1 g/dL (14.0-18.0); LYMPHOCYTES # (AUTO) 2.26 10*3/uL; MEAN CORPUSCULAR HEMOGLOBIN 30.8 PG (27-31); MEAN CORPUSCULAR HGB CONC 33.2 g/dL (33-37); MEAN CORPUSCULAR VOLUME 92.7 FL (80-90); MEAN PLATELET VOLUME 10.6 FL (7.4-12.2); MONOCYTES # (AUTO) 0.74 10*3/UL (0.3-0.8); MONOCYTES % (AUTO) 7.7 % (5-15); NEUTROPHILS # (AUTO) 5.85 10*3/UL; NEUTROPHILS % (AUTO) 60.9 % (50-80); RED BLOOD COUNT 4.91 10^6/uL (4.70-6.10)
[2017-04-19 08:45] LABS: PLATELET MORPHOLOGY COMMENT NORMAL MORPHOLOGY (NORM); RBC MORPHOLOGY COMMENT SEE COMMENTS (NORM); WBC MORPHOLOGY COMMENT NORMAL MORPHOLOGY (NORM)
[2017-04-19 08:49] LABS: BLOOD UREA NITROGEN 42 mg/dL (7-22); BUN/CREATININE RATIO 23.33 (6-20); CALCIUM 9.2 mg/dL (8.7-10.7); SERUM ALBUMIN 3.8 g/dL (3.5-4.8)
== END ==
LOC: LAB 08:09
PROVIDERS: ATTEND Internal Medicine
DX: I50.32 Chronic diastolic (congestive) heart failure (principal); I25.10 Atherosclerotic heart disease of native coronary artery without angina pectoris; J44.9 Chronic obstructive pulmonary disease, unspecified; N18.4 Chronic kidney disease, stage 4 (severe); Z99.81 Dependence on supplemental oxygen; Z95.0 Presence of cardiac pacemaker
CPT/HCPCS: 36415; 80053; 83880; 84443; 85025